=== PATIENT | female | born 1980 | race Caucasian/White ===

== ENCOUNTER 2016-07-29 12:12 | Emergency (ER) | payer MEDICAID ==
[2016-07-29 12:30] VITALS: BP 91/57
--- NOTE | 2016-07-29 12:31 | ER Document Report ---
ED Medical Screen (RME) - General Stated Complaint: PELVIC PAIN Notes: 35 yo c/o lower abdominal pain since last night. constant. . 17 weeks gestation. no vaginal bleeding. + dysuria. + nausea. no fever [facility] TRAVEL OUTSIDE OF THE [place] IN LAST 30 DAYS: No - Related Data Allergies/Adverse Reactions: No Known Allergies Allergy (Verified 06/06/16 16:13) Past Medical History Past Surgical History: Reports: Hx Section - Immunizations Hx Diphtheria, Pertussis, Tetanus Vaccination: Yes
[2016-07-29 14:06] LABS: ABSOLUTE EOSINOPHILS # (AUTO) 0.3 10^3/uL (0.0-0.6); BASOPHILS % (AUTO) 0.4 % (0-2); RED CELL DISTRIBUTION WIDTH 13.7 % (11.5-14.0)
[2016-07-29 14:12] LABS: APPEARANCE,URINE CLEAR; BILIRUBIN,URINE NEGATIVE (NEGATIVE); GLUCOSE, URINE NEGATIVE (NEGATIVE); KETONES,URINE NEGATIVE (NEGATIVE); LEUKOCYTE ESTERASE,URINE NEGATIVE (NEGATIVE); NITRITE,URINE NEGATIVE (NEGATIVE); PROTEIN,URINE NEGATIVE (NEGATIVE); URINE SPECIFIC GRAVITY 1.017; UROBILINOGEN,URINE NEGATIVE mg/dL (<2.0)
[2016-07-29 14:20] LABS: ABSOLUTE LYMPHOCYTES (AUTO) 1.8 10^3/uL (0.5-4.7); ABSOLUTE MONOCYTES (AUTO) 0.8 10^3/uL (0.1-1.4); ABSOLUTE NEUT (AUTO) 7.9 10^3/uL (1.7-8.2); HEMOGLOBIN 13.2 g/dL (12.0-15.5); HGB HCT DIFFERENCE 1.6; LYMPHOCYTES % (AUTO) 16.2 % (13-45); MEAN CORPUSCULAR HEMOGLOBIN 32.2 pg (27.0-33.4); MEAN CORPUSCULAR HGB CONC 34.6 g/dL (32.0-36.0); MEAN CORPUSCULAR VOLUME 93 fl (80-97); MONOCYTES % (AUTO) 7.2 % (3-13); RED BLOOD COUNT 4.08 10^6/uL (3.72-5.28); SEGMENTED NEUTROPHILS % (AUTO) 73.2 % (42-78); WHITE BLOOD COUNT 10.9 10^3/uL (4.0-10.5)
[2016-07-29 14:24] LABS: BLOOD UREA NITROGEN 7 mg/dL (7-20); CALCIUM 9.4 mg/dL (8.4-10.2); CREATININE RESULT 0.64 mg/dL (0.52-1.25); GLUCOSE 75 mg/dL (75-110)
[2016-07-29 14:25] LABS: ALANINE AMINOTRANSFERASE 26 U/L (9-52); ALBUMIN 3.8 g/dL (3.5-5.0); ALKALINE PHOSPHATASE 61 U/L (38-126); ANION GAP 9 (5-19); ASPARTATE AMINO TRANSFERASE 18 U/L (14-36); BILIRUBIN,TOTAL 0.6 mg/dL (0.2-1.3); CARBON DIOXIDE 27 mmol/L (22-30); CHLORIDE 105 mmol/L (98-107); POTASSIUM 4.3 mmol/L (3.6-5.0); SODIUM 140.7 mmol/L (137-145); TOTAL PROTEIN 6.6 g/dL (6.3-8.2)
--- NOTE | 2016-07-29 17:34 | ER Document Report ---
ED GI/ - General Chief Complaint: Pelvic Pain Stated Complaint: PELVIC PAIN TRAVEL OUTSIDE OF THE [place] IN LAST 30 DAYS: No - HPI heart tones (bpm): 140 - Related Data Allergies/Adverse Reactions: Penicillins Allergy (Verified 07/29/16 13:33) rash Home Medications: Current Home Medications Pnv with Ca,No.72/Iron/FA [Pnv Plus Multivit Tab] 1 tab PO DAILY [History] Past Medical History - Social History Smoking Status: Unknown if Ever Smoked Chew tobacco use (# tins/day): No Frequency of alcohol use: None Drug Abuse: None Family History: Reviewed & Not Pertinent Patient has suicidal ideation: No Patient has homicidal ideation: No Past Surgical History: Reports: Hx Section - Immunizations Hx Diphtheria, Pertussis, Tetanus Vaccination: Yes Physical Exam - Vital signs Vitals: Temp Pulse Resp BP Pulse Ox 97.6 F 81 18 91/57 L 100 07/29/16 12:27 07/29/16 12:27 07/29/16 12:27 07/29/16 12:27 07/29/16 12:27 Course - Vital Signs Vital signs: Temp Pulse Resp BP Pulse Ox 97.6 F 81 18 91/57 L 100 07/29/16 12:27 07/29/16 12:27 07/29/16 12:27 07/29/16 12:27 07/29/16 12:27 - Laboratory Result Diagrams: 07/29/16 13:10 07/29/16 13:10 Laboratory results interpreted by me: 07/29/16 07/29/16 13:10 13:10 WBC 10.9 H Beta HCG, Quant 83058.00 H Discharge - Discharge Clinical Impression: Pelvic pain during Condition: Stable Disposition: HOME, SELF-CARE Instructions: Pelvic Pain in ([facility]) Additional Instructions: Drink plenty of fluids, at least 2 to 3 liters of water per day. Follow-up with your [employer] Operator tomorrow as discussed. Return to the Emergency Department for any worsening symptoms or concerns. Referrals: [facility] [Provider Group] - Follow up tomorrow ELIF BUSTOS PA-C [Primary Care Provider] - Follow up in 3-5 days
== END 2016-07-29 17:50 | disposition home or self-care (01) ==
LOC: ER 12:12
DX: R10.2 Pelvic and perineal pain (principal)
CPT/HCPCS: 36415; 76805; 80053; 81001; 84702; 85025; 99284

== ENCOUNTER 2016-08-15 08:46 | Emergency (ER) | payer MEDICAID ==
[2016-08-15] MEDS ORDERED: ONDANSETRON HCL INJ/PF 4 MG/2 ML SDV IV ONE (09:51)
--- NOTE | 2016-08-15 09:56 | ER Document Report ---
ED General - General Chief Complaint: Pelvic Pain Stated Complaint: ADOMINAL PAIN Time seen by provider: 09:53 Mode of Arrival: Ambulatory Information source: Patient Notes: 85-year-old female who reports 3 episodes of nausea vomiting and bilateral lower abdominal pain beginning some point last night. Ports being 19 weeks and is followed by the women's clinic locally. She reports that with this in the past she's had episodes of vaginal leading and discharge has been found on ultrasound have less than normal amount of fluid and is been on bedrest. She denies any diarrhea, fever, chills, cough, shortness breath, chest pain, back pain, vaginal bleeding or discharge, dysuria urgency frequency with her current symptoms. Physical Exam: General: Alert, appears well. HEENT: Normocephalic. Atraumatic. PERRLA. Extraocular movements intact. Oropharynx clear. Neck: Supple. Non-tender. Respiratory: No respiratory distress. Clear and equal breath sounds bilaterally. Cardiovascular: Regular rate and rhythm. Abdominal: Normal Inspection. Soft, gravid uterus. Patient has suprapubic discomfort to palpation it seems localized to the uterus itself. Remainder of her abdomen is nontender and there is no guarding rebound rigidity. No distension. Normal Bowel Sounds. exam normal external female genitalia. Minimal thick white discharge. No adnexal tenderness bilaterally. Lower uterine segment mildly tender to palpation. Os is closed. No blood or tissue in the vaginal vault Back: Non-tender. No deformity or step off. No CVA tenderness Extremities: Moves all four extremities. Upper extremities: Normal inspection. Non-tender. Normal color. Normal ROM. Normal temperature. Lower extremities: Normal inspection. Non-tender. No edema. Normal color. Normal ROM. Normal temperature. Neurological: Speech is slow and patient has a mild expressive aphasia. No cranial nerve deficits appreciated. Psychological: Normal affect. Normal Mood. Skin: Warm. Dry. Normal color. TRAVEL OUTSIDE OF THE [place] 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 She reports residual speech difficulty related to that Renal/ Medical History: Denies: Hx Peritoneal Dialysis Traumatic Medical History: Reports: Hx Traumatic Brain Injury Past Surgical History: Reports: Hx Section - Immunizations Hx Diphtheria, Pertussis, Tetanus Vaccination: Yes Review of Systems - Review of Systems Constitutional: denies: Chills, Fever EENT: denies: Ear pain, Throat pain Cardiovascular: denies: Chest pain Respiratory: denies: Cough, Short of breath Gastrointestinal: See HPI Genitourinary: See HPI Female Genitourinary: See HPI Musculoskeletal: denies: Back pain Hematologic/Lymphatic: denies: Swollen glands Neurological/Psychological: denies: Weakness, Numbness Physical Exam - Vital signs Vitals: Temp Pulse Resp BP Pulse Ox 97.7 F 84 18 106/51 L 100 08/15/16 08:53 08/15/16 08:53 08/15/16 08:53 08/15/16 08:53 08/15/16 08:53 Course - Re-evaluation Re-evalutation: 08/15/16 12:22 Patient reports that her abdominal discomfort have been coming and going in waves but seems to have resolved now. She has received IV fluids and medication for nausea here. Reevaluation of abdomen shows her to be nontender nondistended no guarding rebound rigidity. I discussed the case with Dr. Claudio on-call for NUCLEAR PHYSICIST. Confirmed with her that the patient's wet prep and urinalysis were clear. She also expressed concern to ensure the patient cervical length was greater than 2.5 cm and ultrasound shows this to be 2.9 cm so believe she is safe for discharge with outpatient follow-up. We'll ask her to call office today for that and she reports having an appointment on the . She does have a minimal leukocytosis but I think is consistent with second trimester and the remainder of her abdomen has never been tender and my suspicion for other etiologies of her discomfort and nausea such as appendicitis or nephrolithiasis is low enough that I do not believe imaging is warranted. - Vital Signs Vital signs: Temp Pulse Resp BP Pulse Ox 97.7 F 84 18 106/51 L 100 08/15/16 08:53 08/15/16 08:53 08/15/16 10:16 08/15/16 08:53 08/15/16 08:53 - Laboratory Result Diagrams: 08/15/16 10:40 08/15/16 10:40 Laboratory results interpreted by me: 08/15/16 08/15/16 10:40 10:40 WBC 12.0 H Seg Neutrophils % 81.7 H Lymphocytes % 10.7 L Absolute Neutrophils 9.8 H Glucose 62 L - Diagnostic Test Radiology reviewed: Reports reviewed Discharge - Discharge Clinical Impression: Abdominal pain affecting , antepartum Condition: Stable Disposition: HOME, SELF-CARE Instructions: Pelvic Pain in ([facility]) Referrals: ELIF BUSTOS PA-C [Primary Care Provider] - Follow up as needed NORMA WOODS MD [ACTIVE STAFF] - Follow up tomorrow
[2016-08-15 10:57] LABS: ABSOLUTE EOSINOPHILS # (AUTO) 0.1 10^3/uL (0.0-0.6); ABSOLUTE LYMPHOCYTES (AUTO) 1.3 10^3/uL (0.5-4.7); ABSOLUTE MONOCYTES (AUTO) 0.8 10^3/uL (0.1-1.4); ABSOLUTE NEUT (AUTO) 9.8 10^3/uL (1.7-8.2); BASOPHILS % (AUTO) 0.3 % (0-2); HEMATOCRIT 38.1 % (36.0-47.0); HEMOGLOBIN 12.7 g/dL (12.0-15.5); LYMPHOCYTES % (AUTO) 10.7 % (13-45); MEAN CORPUSCULAR HEMOGLOBIN 31.9 pg (27.0-33.4); MEAN CORPUSCULAR HGB CONC 33.5 g/dL (32.0-36.0); MEAN CORPUSCULAR VOLUME 95 fl (80-97); MONOCYTES % (AUTO) 6.3 % (3-13); RED CELL DISTRIBUTION WIDTH 13.6 % (11.5-14.0); SEGMENTED NEUTROPHILS % (AUTO) 81.7 % (42-78)
[2016-08-15 11:01] LABS: APPEARANCE,URINE SLIGHTLY-CLOUDY; BILIRUBIN,URINE NEGATIVE (NEGATIVE); GLUCOSE, URINE NEGATIVE (NEGATIVE); KETONES,URINE NEGATIVE (NEGATIVE); LEUKOCYTE ESTERASE,URINE NEGATIVE (NEGATIVE); NITRITE,URINE NEGATIVE (NEGATIVE); PROTEIN,URINE NEGATIVE (NEGATIVE); URINE SPECIFIC GRAVITY 1.017; UROBILINOGEN,URINE NEGATIVE mg/dL (<2.0)
[2016-08-15 11:18] LABS: ALANINE AMINOTRANSFERASE 26 U/L (9-52); ALBUMIN 3.6 g/dL (3.5-5.0); ALKALINE PHOSPHATASE 56 U/L (38-126); ANION GAP 8 (5-19); ASPARTATE AMINO TRANSFERASE 17 U/L (14-36); BILIRUBIN,TOTAL 0.8 mg/dL (0.2-1.3); BLOOD UREA NITROGEN 10 mg/dL (7-20); CALCIUM 9.4 mg/dL (8.4-10.2); CARBON DIOXIDE 27 mmol/L (22-30); CHLORIDE 105 mmol/L (98-107); CREATININE RESULT 0.72 mg/dL (0.52-1.25); GLUCOSE 62 mg/dL (75-110); POTASSIUM 4.2 mmol/L (3.6-5.0); SODIUM 139.6 mmol/L (137-145); TOTAL PROTEIN 6.5 g/dL (6.3-8.2)
[2016-08-15] MEDS: NORMAL SALINE 1000 ML 1,000 ML IV PRN ×2 (11:31→12:10)
[2016-08-15 12:37] VITALS: BP 105/50
[2016-08-15 13:03] LABS: CHLAM PCR NOT DETECTED (NOT DETECT)
== END 2016-08-15 12:39 | disposition home or self-care (01) ==
LOC: ER 08:46
DX: O26.892 Other specified pregnancy related conditions, second trimester (principal); R10.2 Pelvic and perineal pain; O21.9 Vomiting of pregnancy, unspecified; O99.112 Other diseases of the blood and blood-forming organs and certain disorders involving the immune mechanism complicating pregnancy, second trimester; D72.829 Elevated white blood cell count, unspecified; Z3A.19 19 weeks gestation of pregnancy
CPT/HCPCS: 99284; 96361; 96374; 36415; 87086; 87210; 83690; 85025; 80053; 81001; 87491; 87591; 76805; J2405; J7030

== ENCOUNTER 2016-10-19 09:58 | Emergency (ER) | payer MEDICAID ==
--- NOTE | 2016-10-19 10:18 | ER Document Report ---
ED Medical Screen (RME) - General Stated Complaint: ABDOMINAL PAIN Notes: Patient states she woke up this morning sweating, had an episode of vomiting and diarrhea and loss of consciousness. She is having tightness and pain in the abdomen. Patient is currently 29 weeks . Patient denies fever. Patient felt disoriented, has a history of TBI. Patient states she failed her sugar test at OBs office 2 days ago. No vaginal bleeding. I have greeted and performed a rapid initial assessment of this patient. A comprehensive ED assessment and evaluation of the patient, analysis of test results and completion of the medical decision making process will be conducted by additional ED providers. TRAVEL OUTSIDE OF THE [place] IN LAST 30 DAYS: No - Related Data Allergies/Adverse Reactions: Penicillins Allergy (Verified 08/15/16 08:50) rash silk Allergy (Verified 10/19/16 10:13) Difficulty breathing Past Medical History Renal/ Medical History: Denies: Hx Peritoneal Dialysis Traumatic Medical History: Reports: Hx Traumatic Brain Injury Past Surgical History: Reports: Hx Section - Immunizations Hx Diphtheria, Pertussis, Tetanus Vaccination: Yes Physical Exam - Vital signs Vitals: Temp Pulse Resp BP Pulse Ox 97.4 F 91 15 106/63 97 10/19/16 10:12 10/19/16 10:12 10/19/16 10:12 10/19/16 10:12 10/19/16 10:12 - Notes Notes: Patient's speech delayed, states it is always this way due to TBI. Patient's gait slightly off, usually walks with a walker, but does not have it with her today. Course - Vital Signs Vital signs: Temp Pulse Resp BP Pulse Ox 97.4 F 91 15 106/63 97 10/19/16 10:12 10/19/16 10:12 10/19/16 10:12 10/19/16 10:12 10/19/16 10:12
[2016-10-19 11:05] LABS: ABSOLUTE LYMPHOCYTES (AUTO) 1.9 10^3/uL (0.5-4.7); ABSOLUTE MONOCYTES (AUTO) 0.8 10^3/uL (0.1-1.4); ABSOLUTE NEUT (AUTO) 9.8 10^3/uL (1.7-8.2); BASOPHILS % (AUTO) 0.2 % (0-2); EOSINOPHILS % (AUTO) 0.4 % (0-6); HEMATOCRIT 39.4 % (36.0-47.0); HEMOGLOBIN 13.6 g/dL (12.0-15.5); HGB HCT DIFFERENCE 1.4; LYMPHOCYTES % (AUTO) 14.9 % (13-45); MEAN CORPUSCULAR HEMOGLOBIN 32.1 pg (27.0-33.4); MEAN CORPUSCULAR HGB CONC 34.6 g/dL (32.0-36.0); MEAN CORPUSCULAR VOLUME 93 fl (80-97); MONOCYTES % (AUTO) 6.3 % (3-13); RED BLOOD COUNT 4.24 10^6/uL (3.72-5.28); RED CELL DISTRIBUTION WIDTH 13.5 % (11.5-14.0); SEGMENTED NEUTROPHILS % (AUTO) 78.2 % (42-78); WHITE BLOOD COUNT 12.5 10^3/uL (4.0-10.5)
[2016-10-19 11:18] LABS: APPEARANCE,URINE CLEAR; BILIRUBIN,URINE NEGATIVE (NEGATIVE); GLUCOSE, URINE NEGATIVE (NEGATIVE); KETONES,URINE NEGATIVE (NEGATIVE); LEUKOCYTE ESTERASE,URINE NEGATIVE (NEGATIVE); NITRITE,URINE NEGATIVE (NEGATIVE); PROTEIN,URINE NEGATIVE (NEGATIVE); UROBILINOGEN,URINE NEGATIVE mg/dL (<2.0)
[2016-10-19 11:25] LABS: ALANINE AMINOTRANSFERASE 23 U/L (9-52); ALBUMIN 3.8 g/dL (3.5-5.0); ALKALINE PHOSPHATASE 80 U/L (38-126); ANION GAP 10 (5-19); ASPARTATE AMINO TRANSFERASE 21 U/L (14-36); BILIRUBIN,DIRECT 0.1 mg/dL (0.0-0.4); BLOOD UREA NITROGEN 8 mg/dL (7-20); CALCIUM 9.6 mg/dL (8.4-10.2); CARBON DIOXIDE 26 mmol/L (22-30); CHLORIDE 104 mmol/L (98-107); GLUCOSE 80 mg/dL (75-110); POTASSIUM 4.1 mmol/L (3.6-5.0); SODIUM 139.9 mmol/L (137-145); TOTAL PROTEIN 6.8 g/dL (6.3-8.2)
[2016-10-19] MEDS ORDERED: NORMAL SALINE 1000 ML 1,000 ML IV ONE (11:35)
[2016-10-19] MEDS ORDERED: DIPHENHYDRAMINE HCL 50 MG/ML VIAL IV ONE (11:37)
[2016-10-19] MEDS ORDERED: METOCLOPRAMIDE HCL INJ/PF 10 MG/2 ML SDV IV ONE (11:37)
--- NOTE | 2016-10-19 11:43 | ER Document Report ---
ED General - General Mode of Arrival: Ambulatory Information source: Patient TRAVEL OUTSIDE OF THE [place] IN LAST 30 DAYS: No - HPI Patient complains to provider of: Syncopal Episode Onset: This morning Onset/Duration: Sudden Associated symptoms: Diarrhea - x1, Nausea, Vomiting, Shortness of breath, Sweating, Other - Syncope <DINAH SOSA - Last Filed: 10/19/16 11:35> <MACI VILLAGRAN - Last Filed: 10/19/16 14:21> - General Chief Complaint: Syncope Stated Complaint: ABDOMINAL PAIN Notes: Patient is a 35-year-old female, who is 29 weeks , presenting to the emergency department chief complaint one syncopal episode which occurred this morning. Patient also states that she woke up drenched in sweat, heart pounding , and has been short of breath, vomiting, (latest episode at 0900), and having diarrhea. Patient states that she normally has nausea and vomiting with her , but it doesn't normally happen at this time of day. Patient has history of traumatic brain injury and walks with a walker. Patient also mentions that somebody told her she failed her glucose tolerance test. (DINAH SOSA) - Related Data Allergies/Adverse Reactions: Penicillins Allergy (Verified 08/15/16 08:50) rash silk Allergy (Verified 10/19/16 10:13) Difficulty breathing Past Medical History - General Information source: Patient - Social History Smoking Status: Never Smoker Chew tobacco use (# tins/day): No Frequency of alcohol use: None Drug Abuse: None Family History: Reviewed & Not Pertinent, DM - Brother Patient has suicidal ideation: No Patient has homicidal ideation: No Renal/ Medical History: Denies: Hx Peritoneal Dialysis Traumatic Medical History: Reports: Hx Traumatic Brain Injury Past Surgical History: Reports: Hx Section - Immunizations Hx Diphtheria, Pertussis, Tetanus Vaccination: Yes <DINAH SOSA - Last Filed: 10/19/16 11:35> Review of Systems - Review of Systems Constitutional: See HPI, Diaphoresis EENT: No symptoms reported Cardiovascular: See HPI, Heart racing, Syncope Respiratory: See HPI, Short of breath Gastrointestinal: See HPI, Abdominal pain - Right lower quadrant and left lower quadrant abdominal pain, Diarrhea - x1, Nausea, Vomiting Genitourinary: No symptoms reported Female Genitourinary: See HPI, Musculoskeletal: No symptoms reported Skin: No symptoms reported Hematologic/Lymphatic: No symptoms reported Neurological/Psychological: See HPI, Confusion -: Yes All other systems reviewed and negative <DINAH SOSA - Last Filed: 10/19/16 11:35> Physical Exam - Vital signs Interpretation: Normal - General General appearance: Appears well, Alert - HEENT Head: Normocephalic, Atraumatic Eyes: Normal Pupils: PERRL - Respiratory Respiratory status: No respiratory distress Chest status: Nontender Breath sounds: Normal Chest palpation: Normal - Cardiovascular Rhythm: Regular Heart sounds: Normal auscultation Murmur: No - Abdominal Inspection: Gravid female - 29 weeks Bowel sounds: Normal Tenderness: Tender - Right lower quadrant and left lower quadrant tenderness to palpation - Back Back: Normal, Nontender - Extremities General upper extremity: Normal inspection, Nontender General lower extremity: Normal inspection, Nontender - Neurological Neuro grossly intact: Yes Cognition: Normal Orientation: AAOx4 Khloe Coma Scale Eye Opening: Spontaneous [place]hloe Coma Scale Verbal: Oriented Khloe Coma Scale Motor: Obeys Commands [place] Coma Scale Total: 15 Speech: Normal - Psychological Associated symptoms: Normal affect, Normal mood - Skin Skin Temperature: Warm Skin Moisture: Dry Skin Color: Normal <DINAH SOSA - Last Filed: 10/19/16 11:35> Course - Laboratory Result Diagrams: 10/19/16 10:40 10/19/16 10:40 <DINAH SOSA - Last Filed: 10/19/16 11:35> - Laboratory Result Diagrams: 10/19/16 10:40 10/19/16 10:40 - EKG Interpretation by Ny EKG shows normal: Sinus rhythm, [place], Intervals, QRS Complexes, ST-T Waves Rate: Normal - 74 Rhythm: NSR <MACI VILLAGRAN - Last Filed: 10/19/16 14:21> - Re-evaluation Re-evalutation: 10/19/16 14:19 Patient reports she feels considerably better after the IV Reglan and fluids. The nausea is gone and the headache is gone. She is not sure if she has had that for the nausea of her for headache in the past. (MACI VILLAGRAN) - Vital Signs Vital signs: Temp Pulse Resp BP Pulse Ox 97.4 F 91 15 106/63 97 10/19/16 10:12 10/19/16 10:12 10/19/16 10:12 10/19/16 10:12 10/19/16 10:12 - Laboratory Laboratory results interpreted by me: 10/19/16 10:40 WBC 12.5 H Seg Neutrophils % 78.2 H Absolute Neutrophils 9.8 H Discharge <DINAH SOSA - Last Filed: 10/19/16 11:35> <MACI VILLAGRAN - Last Filed: 10/19/16 14:21> - Discharge Clinical Impression: 29 weeks gestation of Nausea and vomiting Qualifiers: Vomiting type: unspecified Vomiting Intractability: non-intractable Qualified Code(s): R11.2 - Nausea with vomiting, unspecified Headache Qualifiers: Headache type: unspecified Headache chronicity pattern: unspecified pattern Intractability: not intractable Qualified Code(s): R51 - Headache Condition: Stable Disposition: HOME, SELF-CARE Additional Instructions: Take the Reglan for nausea as prescribed if needed. Drink cool clear liquids today. Follow-up with your TRAFFIC CHECKER doctor if not feeling better. RETURN TO THE EMERGENCY ROOM IF ANY NEW OR WORSENING SYMPTOMS. Prescriptions: Metoclopramide HCl 10 mg PO QID PRN #20 tablet PRN Reason: Scribe Attestation: 10/19/16 14:21 I personally performed the services described in the documentation, reviewed and edited the documentation which was dictated to the scribe in my presence, and it accurately records my words and actions. (MACI VILLAGRAN) Scribe Documentation - Scribe Written by Scribe:: Dinah Sosa 10/19/2016 1136 acting as scribe for :: Fabian <DINAH SOSA - Last Filed: 10/19/16 11:35>
[2016-10-19 14:41] VITALS: BP 98/55
--- NOTE | 2016-10-19 22:02 | EKG REPORT ---
SEVERITY:- NORMAL ECG - SINUS RHYTHM : Confirmed by: Tyrone Minaya 19-Oct-2016 22:01:12
== END 2016-10-19 14:38 | disposition home or self-care (01) ==
LOC: ER 09:58
DX: R11.2 Nausea with vomiting, unspecified (principal); R51 Headache; R55 Syncope and collapse; R10.9 Unspecified abdominal pain; Z3A.29 29 weeks gestation of pregnancy
CPT/HCPCS: 93005; 99284; 96361; 96374; 96375; 36415; 82550; 85025; 80053; 81001; 84484; 93010; J1200; J2765; J7030

== ENCOUNTER 2016-11-05 11:28 | Emergency (ER) | payer MEDICAID ==
[2016-11-05 11:41] VITALS: BP 113/72
[2016-11-05] MEDS ORDERED: ACETAMINOPHEN 325 MG TABLET PO ONE (12:32)
--- NOTE | 2016-11-05 12:35 | ER Document Report ---
HPI - HPI Patient complains to provider of: knee pain Onset: Other - 2 days Onset/Duration: Persistent Quality of pain: Achy Pain Level: 4 Context: Patient reports a history of chronic left knee and ankle pain. Patient states that pain will occasionally flareup from time to time. Patient states she was in the bathtub 2 days ago, slipped and fell aggravating her chronic left ankle and knee pain. Patient states that due to limping her right knee and hip have started to become tender. Patient states she's had her right knee and hip become painful in the past due to changes in her gait. Patient does have a walker at home, but states it is a heavy walker that has a seat on it so she does not like to use this at home. Patient additionally reports that she has a knee immobilizer at home, but she has lost weight and the brace no longer fits her. He shouldn't states that she does not suspect that she has a fractured bone and would simply like to have a brace for her knee that fits her more appropriately. Patient is currently 31 weeks . Patient denies any abdominal pain, vaginal bleeding or discharge. Associated Symptoms: Other Exacerbated by: Standing, Movement - Left knee, ankle pain, right knee, right hip pain, Walking Relieved by: Denies Similar symptoms previously: Yes Recently seen / treated by doctor: No - ROS ROS below otherwise negative: Yes Systems Reviewed and Negative: Yes All other systems reviewed and negative - CONSTITUTIONAL Constitutional: DENIES: Fever, Chills - NEURO Neurology: DENIES: Headache - RESPIRATORY Respiratory: DENIES: Coughing - GASTROINTESTINAL Gastrointestinal: DENIES: Nausea, Patient vomiting - REPRODUCTIVE Reproductive: REPORTS: : - MUSCULOSKELETAL Musculoskeletal: REPORTS: Extremity pain. DENIES: Back Pain, Neck Pain - DERM Skin Color: Normal Skin Problems: None Past Medical History - General Information source: Patient Last Menstrual Period: 31 weeks - Social History Smoking Status: Never Smoker Frequency of alcohol use: None Drug Abuse: None Lives with: Family Family History: Reviewed & Not Pertinent, DM - Brother Patient has suicidal ideation: No Patient has homicidal ideation: No Renal/ Medical History: Denies: Hx Peritoneal Dialysis Musculoskeltal Medical History: Reports Hx Arthritis - Left knee and ankle pain Traumatic Medical History: Reports: Hx Traumatic Brain Injury, Other - Speech and motor functioning problems after TBI, patient reports history of frequent falls Past Surgical History: Reports: Hx Section - Immunizations Hx Diphtheria, Pertussis, Tetanus Vaccination: Yes Vertical Provider Document - CONSTITUTIONAL Agree With Documented VS: Yes Exam Limitations: No Limitations General Appearance: WD/WN, No Apparent Distress - INFECTION CONTROL TRAVEL OUTSIDE OF THE [place] IN LAST 30 DAYS: No - HEENT HEENT: Atraumatic, Normal ENT Exam, Normocephalic - NECK Neck: Normal Inspection, Supple - RESPIRATORY Respiratory: Breath Sounds Normal, No Respiratory Distress O2 Sat by Pulse Oximetry: 97 - CARDIOVASCULAR Cardiovascular: Regular Rate, Regular Rhythm, No Murmur Pulses: Normal: Dorsalis pedis - GI/ABDOMEN Gastrointestinal: Abdomen Soft, Abdomen Non-Tender - BACK Back: Normal Inspection. negative: CVA Tenderness-Right, CVA Tenderness-Left Notes: No spinal midline tenderness, step-off, deformity - MUSCULOSKELETAL/EXTREMETIES Musculoskeletal/Extremeties: MAEW, FROM, Tender - Tenderness with palpation to medial aspect of right knee, no joint effusion, no laxity with varus or valgus maneuvers. Tenderness to medial and inferior aspect of left knee. Patient with mild ecchymosis to medial left knee. No joint effusion, no laxity with varus or valgus maneuvers., Eccymosis - Faint ecchymotic area dorsal aspect of right foot. Notes: Tenderness with palpation of left ankle, no edema, no deformity. - NEURO Level of Consciousness: Awake, Alert, Appropriate Motor/Sensory: No Motor Deficit - DERM Integumentary: Warm, Dry Course - Re-evaluation Re-evalutation: 11/05/16 12:31 Offered patient x-rays, patient states that she does not feel that she has any broken bones and declines x-ray at this time. Patient does request to have an immobilizer for her left knee that does fit as her current immobilizer does not fit due to her 50 pound weight loss over the past several months. Patient states she does have a walker at home. Patient reports that she has concerns about using crutches due to her mobility issues after her previous traumatic brain injury. Patient states that she does frequently fall at home a lot. Patient encouraged to use her walker at home to help with ambulation to prevent falls. - Vital Signs Vital signs: Temp Pulse Resp BP Pulse Ox 98.4 F 91 16 113/72 97 11/05/16 11:39 11/05/16 11:39 11/05/16 11:39 11/05/16 11:39 11/05/16 11:39 Procedures - Immobilization Left Knee Pre-Proc Neuro Vasc Exam: Normal Immobilizer type: Knee immobilizer Performed by: PCT Post-Proc Neuro Vasc Exam: Normal Alignment checked and good: Yes Left Ankle Pre-Proc Neuro Vasc Exam: Normal Immobilizer type: David wrap Performed by: PCT Post-Proc Neuro Vasc Exam: Normal Alignment checked and good: Yes Right Knee Pre-Proc Neuro Vasc Exam: Normal Immobilizer type: David wrap Performed by: PCT Post-Proc Neuro Vasc Exam: Normal Alignment checked and good: Yes Discharge - Discharge Clinical Impression: Chronic pain of left ankle Knee sprain Qualifiers: Encounter type: initial encounter Involved ligament of knee: unspecified ligament Laterality: unspecified laterality Qualified Code(s): S83.90XA - Sprain of unspecified site of unspecified knee, initial encounter Contusion of knee, left Qualifiers: Encounter type: initial encounter Qualified Code(s): S80.02XA - Contusion of left knee, initial encounter Condition: Stable Disposition: HOME, SELF-CARE Instructions: David Wrap ([facility]), Knee Immobilizing Splint ([facility]), Sprained Knee ( [facility]), Contusion ([facility]), Acetaminophen Additional Instructions: Return immediately for any new or worsening symptoms Followup with your primary care provider, call tomorrow to make a followup appointment Use your walker that you have at home to help with ambulation and prevent falls You may take Tylenol [id number] to help with her pain symptoms. Follow up with an orthopedic Dr. for further evaluation, call today for an appointment Prescriptions: Walker [Folding Walker] 1 each ASDIR PRN #1 each PRN Reason: Referrals: [facility] [Provider Group] - Follow up tomorrow
== END 2016-11-05 13:33 | disposition home or self-care (01) ==
LOC: ER 11:28
DX: O26.93 Pregnancy related conditions, unspecified, third trimester (principal); S83.90XA Sprain of unspecified site of unspecified knee, initial encounter; S80.02XA Contusion of left knee, initial encounter; M25.572 Pain in left ankle and joints of left foot; G89.29 Other chronic pain; W18.2XXA Fall in (into) shower or empty bathtub, initial encounter; Y93.E1 Activity, personal bathing and showering; Y92.002 Bathroom of unspecified non-institutional (private) residence as the place of occurrence of the external cause; Z3A.31 31 weeks gestation of pregnancy
CPT/HCPCS: 99283; L1830; J3490

== ENCOUNTER 2016-12-03 12:04 | Outpatient (CLI) | payer MEDICAID ==
--- NOTE | 2016-12-03 13:15 | Non Stress Test Report ---
Non Stress Test Datetime Report Generated by CPN: 12/03/2016 13:15 DEMOGRAPHIC EGA NST: 35.3 INDICATION Indication for Study: Ordered by Provider MONITORING Monitor Explained: Monitor Explained; Test Explained; Patient Verbalized Understanding Time on Monitor: 12/03/2016 12:26 Time off Monitor: 12/03/2016 13:09 NST Duration: 43 NST INTERVENTIONS NST Interventions: PO Hydration; IV Fluids; Reposition Patient Physician Notified NST: A. Emmel, CNM BABY A: [id number] BABY A Movement : Present Contraction Frequency : 0 FHR Baseline : 135 FHR Baseline : 130 Accelerations : 15X15 Decelerations : None Variability : Moderate 6-25bpm NST Review: Meets Criteria for Reactive NST NST Review and Verified By : JOSIANE Damon Results: Reactive NST REPORT Report Trigger: Send Report
[2016-12-03] MEDS ORDERED: RINGERS SOLUTION,LACTATED 1,000 ML IV PRN (14:28)
== END 2016-12-03 15:16 | disposition home or self-care (01) ==
LOC: LC 12:04
PROVIDERS: ATTEND Obstetrics & Gynecology
PROC: 4A1HXCZ Monitoring of Products of Conception, Cardiac Rate, External Approach (ICD-10-PCS; principal; 2016-12-03)
DX: O99.283 Endocrine, nutritional and metabolic diseases complicating pregnancy, third trimester (principal); E86.0 Dehydration; O09.523 Supervision of elderly multigravida, third trimester; Z3A.35 35 weeks gestation of pregnancy

== ENCOUNTER 2016-12-04 16:53 | Emergency (ER) | payer MEDICAID ==
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
[2016-12-04] MEDS ORDERED: NORMAL SALINE 1000 ML 1,000 ML IV PRN ×2 (18:24→19:41)
[2016-12-04] MEDS ORDERED: METOCLOPRAMIDE HCL INJ/PF 10 MG/2 ML SDV IV ONE (18:24)
[2016-12-04] MEDS ORDERED: DIPHENHYDRAMINE HCL 50 MG/ML VIAL IV ONE (18:24)
--- NOTE | 2016-12-04 18:27 | ER Document Report ---
ED Headache - General Chief Complaint: Headache >24 hrs old Stated Complaint: HEADACHE/DIZZINESS Time Seen by Provider: 12/04/16 17:35 Mode of Arrival: Ambulatory Information source: Patient TRAVEL OUTSIDE OF THE [place] IN LAST 30 DAYS: No - HPI Patient complains to provider of: Headache Patient reports: Hx chronic headaches, Prior TBI Onset: Other - 3 days Onset was: Gradual, Thunderclap Quality of pain: Achy, Fullness, Pressure Severity: Moderate Pain Level: 4 Associated symptoms: Dizzy, Nausea/vomiting Similar symptoms previously: Yes Recently seen / treated by doctor: Yes Notes: Patient is a 36-year-old female who is approximately 35 weeks , with one previous miscarriage, history of preeclampsia during her first , presenting to the emergency room complaining of headache mainly on the right side of the head that's been present for the past 3 days, she is a history of a TBI in February 2016, and had similar headaches following her head injury, but has not had any recently, she also has a history of a DVT and is currently on Lovenox injections, Diclygis and Singulair, she is followed by [facility], she reports nausea associated with her headache but no vomiting or diarrhea, no fever, no recent head injury, no dysuria, no fever or chills, denies any abdominal pain or vaginal bleeding as well - Related Data Allergies/Adverse Reactions: Penicillins Allergy (Verified 12/04/16 17:29) rash silk Allergy (Verified 12/04/16 17:29) Difficulty breathing Past Medical History - General Information source: Patient - Social History Smoking Status: Unknown if Ever Smoked Family History: Reviewed & Not Pertinent, DM - Brother Patient has suicidal ideation: No Patient has homicidal ideation: No Endocrine Medical History: Reports: Hx Diabetes Mellitus Type 2 - gestational Renal/ Medical History: Denies: Hx Peritoneal Dialysis Musculoskeltal Medical History: Reports Hx Arthritis - Left knee and ankle pain Traumatic Medical History: Reports: Hx Traumatic Brain Injury Past Surgical History: Reports: Hx Section, Hx Tonsillectomy - Immunizations Hx Diphtheria, Pertussis, Tetanus Vaccination: Yes Review of Systems - Review of Systems Constitutional: No symptoms reported EENT: Eye pain Cardiovascular: No symptoms reported Respiratory: No symptoms reported Gastrointestinal: Nausea Genitourinary: No symptoms reported Female Genitourinary: No symptoms reported Musculoskeletal: No symptoms reported Skin: No symptoms reported Hematologic/Lymphatic: No symptoms reported Neurological/Psychological: Headaches -: Yes All other systems reviewed and negative Physical Exam - Vital signs Vitals: Temp Pulse Resp BP Pulse Ox 97.8 F 88 14 122/83 97 12/04/16 17:14 12/04/16 17:14 12/04/16 17:14 12/04/16 17:14 12/04/16 17:14 Interpretation: Normal - General General appearance: Appears well, Alert - HEENT Head: Normocephalic, Atraumatic Eyes: Normal Conjunctiva: Normal Extraocular movements intact: Yes Eyelashes: Normal Pupils: PERRL - Respiratory Respiratory status: No respiratory distress Chest status: Nontender Breath sounds: Normal Chest palpation: Normal - Cardiovascular Rhythm: Regular Heart sounds: Normal auscultation Murmur: No - Abdominal Inspection: Normal, Gravid female Distension: No distension Bowel sounds: Normal Tenderness: Nontender Organomegaly: No organomegaly - Back Back: Normal, Nontender - Extremities General upper extremity: Normal inspection, Nontender, Normal color, Normal ROM , Normal temperature General lower extremity: Normal inspection, Nontender, Normal color, Normal ROM , Normal temperature, Normal weight bearing. No: Mago's sign - Neurological Neuro grossly intact: Yes Cognition: Normal Orientation: AAOx4 [place] Coma Scale Eye Opening: Spontaneous Khloe Coma Scale Verbal: Oriented Khloe Coma Scale Motor: Obeys Commands [place] Coma Scale Total: 15 Speech: Normal Motor strength normal: LUE, RUE, LLE, RLE Sensory: Normal - Psychological Associated symptoms: Normal affect, Normal mood - Skin Skin Temperature: Warm Skin Moisture: Dry Skin Color: Normal Course - Vital Signs Vital signs: Temp Pulse Resp BP Pulse Ox 97.8 F 88 14 122/83 97 12/04/16 17:14 12/04/16 17:14 12/04/16 17:14 12/04/16 17:14 12/04/16 17:14
[2016-12-04 18:49] LABS: ABSOLUTE EOSINOPHILS # (AUTO) 0.1 10^3/uL (0.0-0.6); ABSOLUTE LYMPHOCYTES (AUTO) 1.8 10^3/uL (0.5-4.7); ABSOLUTE MONOCYTES (AUTO) 0.9 10^3/uL (0.1-1.4); ABSOLUTE NEUT (AUTO) 8.1 10^3/uL (1.7-8.2); BASOPHILS % (AUTO) 0.3 % (0-2); EOSINOPHILS % (AUTO) 0.8 % (0-6); HEMOGLOBIN 13.6 g/dL (12.0-15.5); HGB HCT DIFFERENCE -0.2; LYMPHOCYTES % (AUTO) 16.7 % (13-45); MEAN CORPUSCULAR HEMOGLOBIN 31.4 pg (27.0-33.4); MEAN CORPUSCULAR HGB CONC 33.3 g/dL (32.0-36.0); MEAN CORPUSCULAR VOLUME 95 fl (80-97); MONOCYTES % (AUTO) 8.3 % (3-13); RED BLOOD COUNT 4.34 10^6/uL (3.72-5.28); RED CELL DISTRIBUTION WIDTH 14.6 % (11.5-14.0); SEGMENTED NEUTROPHILS % (AUTO) 73.9 % (42-78)
[2016-12-04 20:54] LABS: ALANINE AMINOTRANSFERASE 30 U/L (9-52); ALBUMIN 3.3 g/dL (3.5-5.0); ALKALINE PHOSPHATASE 111 U/L (38-126); ANION GAP 10 (5-19); ASPARTATE AMINO TRANSFERASE 28 U/L (14-36); BILIRUBIN,DIRECT 0.2 mg/dL (0.0-0.4); BILIRUBIN,TOTAL 0.9 mg/dL (0.2-1.3); BLOOD UREA NITROGEN 8 mg/dL (7-20); CALCIUM 8.5 mg/dL (8.4-10.2); CARBON DIOXIDE 22 mmol/L (22-30); CHLORIDE 108 mmol/L (98-107); CREATININE RESULT 0.66 mg/dL (0.52-1.25); GLUCOSE 66 mg/dL (75-110); LDH 409 U/L (313-618); POTASSIUM 4.1 mmol/L (3.6-5.0); SODIUM 140.2 mmol/L (137-145); TOTAL PROTEIN 6.5 g/dL (6.3-8.2); URIC ACID 4.6 mg/dL (2.5-7.0)
[2016-12-04 21:01] LABS: APPEARANCE,URINE CLEAR; BILIRUBIN,URINE NEGATIVE (NEGATIVE); GLUCOSE, URINE NEGATIVE (NEGATIVE); KETONES,URINE NEGATIVE (NEGATIVE); LEUKOCYTE ESTERASE,URINE NEGATIVE (NEGATIVE); NITRITE,URINE NEGATIVE (NEGATIVE); PROTEIN,URINE NEGATIVE (NEGATIVE); URINE SPECIFIC GRAVITY 1.011; UROBILINOGEN,URINE NEGATIVE mg/dL (<2.0)
[2016-12-04 22:14] VITALS: BP 111/77
== END 2016-12-04 22:10 | disposition home or self-care (01) ==
LOC: ER 16:53
DX: R51 Headache (principal); R42 Dizziness and giddiness; R11.2 Nausea with vomiting, unspecified
CPT/HCPCS: 99284; 96361; 96374; 96375; 36415; 87086; 82962; 83615; 84550; 85025; 80053; 81001; J1200; J2765; J7030

== ENCOUNTER 2016-12-06 11:00 | Observation (INO) | payer MEDICAID ==
[2016-12-06 12:26] LABS: APPEARANCE,URINE SLIGHTLY-CLOUDY; BILIRUBIN,URINE NEGATIVE (NEGATIVE); GLUCOSE, URINE NEGATIVE (NEGATIVE); KETONES,URINE 20 mg/dL (NEGATIVE); LEUKOCYTE ESTERASE,URINE NEGATIVE (NEGATIVE); NITRITE,URINE NEGATIVE (NEGATIVE); PROTEIN,URINE NEGATIVE (NEGATIVE); URINE SPECIFIC GRAVITY 1.013; UROBILINOGEN,URINE NEGATIVE mg/dL (<2.0)
[2016-12-06] MEDS ORDERED: ACETAMINOPHEN 325 MG TABLET ONE (12:33)
[2016-12-06] MEDS ORDERED: ONDANSETRON HCL INJ/PF 4 MG/2 ML SDV ONE (12:34)
[2016-12-06 12:35] LABS: ABSOLUTE LYMPHOCYTES (AUTO) 1.5 10^3/uL (0.5-4.7); ABSOLUTE MONOCYTES (AUTO) 0.9 10^3/uL (0.1-1.4); ABSOLUTE NEUT (AUTO) 9.1 10^3/uL (1.7-8.2); BASOPHILS % (AUTO) 0.3 % (0-2); EOSINOPHILS % (AUTO) 0.3 % (0-6); HEMATOCRIT 37.8 % (36.0-47.0); HEMOGLOBIN 12.8 g/dL (12.0-15.5); HGB HCT DIFFERENCE 0.6; LYMPHOCYTES % (AUTO) 13.2 % (13-45); MEAN CORPUSCULAR HEMOGLOBIN 31.1 pg (27.0-33.4); MEAN CORPUSCULAR VOLUME 92 fl (80-97); MONOCYTES % (AUTO) 8.1 % (3-13); RED BLOOD COUNT 4.12 10^6/uL (3.72-5.28); RED CELL DISTRIBUTION WIDTH 14.5 % (11.5-14.0); SEGMENTED NEUTROPHILS % (AUTO) 78.1 % (42-78); WHITE BLOOD COUNT 11.6 10^3/uL (4.0-10.5)
[2016-12-06 12:53] LABS: URINE BARBITURATES SCREEN NEGATIVE; URINE METHADONE SCREEN NEGATIVE; URINE OPIATES LOW NEGATIVE; URINE PHENCYCLIDINE SCREEN NEGATIVE
[2016-12-06 12:54] LABS: ALANINE AMINOTRANSFERASE 32 U/L (9-52); ALBUMIN 3.4 g/dL (3.5-5.0); ALKALINE PHOSPHATASE 112 U/L (38-126); ANION GAP 9 (5-19); ASPARTATE AMINO TRANSFERASE 29 U/L (14-36); BILIRUBIN,DIRECT 0.4 mg/dL (0.0-0.4); BILIRUBIN,TOTAL 1.4 mg/dL (0.2-1.3); BLOOD UREA NITROGEN 8 mg/dL (7-20); CARBON DIOXIDE 22 mmol/L (22-30); CHLORIDE 106 mmol/L (98-107); CREATININE RESULT 0.63 mg/dL (0.52-1.25); GLUCOSE 72 mg/dL (75-110); POTASSIUM 3.8 mmol/L (3.6-5.0); SODIUM 136.9 mmol/L (137-145); TOTAL PROTEIN 6.4 g/dL (6.3-8.2)
[2016-12-06] MEDS ORDERED: BUTALB/ACETAMINOPHEN/CAFFEINE 1 TAB EACH ONE (17:21)
[2016-12-06] MEDS: BUTALB/ACETAMINOPHEN/CAFFEINE 1 TAB EACH PO PRN ×2 (17:25→22:44)
[2016-12-06] MEDS ORDERED: GABAPENTIN 300 MG CAPSULE PO ONE (18:00)
[2016-12-06] MEDS: MAGNESIUM OXIDE 400 MG TABLET PO SCH (18:09)
[2016-12-06] MEDS ORDERED: ENOXAPARIN SODIUM INJ 40 MG/0.4 ML DISP.SYRIN SUBCUT ONE (22:00)
[2016-12-07] MEDS: BUTALB/ACETAMINOPHEN/CAFFEINE 1 TAB EACH PO PRN (06:36)
--- NOTE | 2016-12-07 07:45 | PDOC PROGRESS REPORT ---
Subjective Progress Note for:: 12/07/16 Subjective:: doing well, pt reports that neurontin, fioricet, magnesium oxide Physical Exam - Physical Exam Vital Signs: Temp Pulse Resp BP Pulse Ox 97.8 F 82 16 94/55 L 98 12/07/16 03:39 12/07/16 03:39 12/07/16 03:39 12/07/16 03:39 12/07/16 03:39 Intake & Output 12/06/16 12/07/16 12/08/16 06:59 06:59 06:59 Intake Total 300 Output Total 900 Balance -600 Weight 67.9 kg General appearance: PRESENT: no acute distress, well-developed, well-nourished Head exam: PRESENT: atraumatic, normocephalic Neck exam: PRESENT: full ROM Cardiovascular exam: PRESENT: bradycardia Pulses: PRESENT: normal dorsalis pedis pul, +2 pedal pulses bilateral GI/Abdominal exam: PRESENT: normal bowel sounds, soft. ABSENT: distended, guarding, mass, organolmegaly, rebound, tenderness Rectal exam: PRESENT: deferred Extremities exam: PRESENT: full ROM. ABSENT: calf tenderness, clubbing, pedal edema Neurological exam: PRESENT: alert, awake, oriented to person, oriented to place , oriented to time, oriented to situation, abnormal gait, ataxia, CN II-XII grossly intact, other - slowed speech. ABSENT: motor sensory deficit Psychiatric exam: PRESENT: appropriate affect, normal mood. ABSENT: homicidal ideation, suicidal ideation Skin exam: PRESENT: dry, intact, warm. ABSENT: cyanosis, rash Result Laboratory Results: 12/06/16 12:16 12/06/16 12:16 12/06/16 12/06/16 12/06/16 11:29 12:16 12:16 WBC 11.6 H RBC 4.12 Hgb 12.8 Hct 37.8 MCV 92 MCH 31.1 MCHC 34.0 RDW 14.5 H Plt Count 161 Seg Neutrophils % 78.1 H Lymphocytes % 13.2 Monocytes % 8.1 Eosinophils % 0.3 Basophils % 0.3 Absolute Neutrophils 9.1 H Absolute Lymphocytes 1.5 Absolute Monocytes 0.9 Absolute Eosinophils 0.0 Absolute Basophils 0.0 Sodium 136.9 L Potassium 3.8 Chloride 106 Carbon Dioxide 22 Anion Gap 9 BUN 8 Creatinine 0.63 Est GFR ( Amer) > 60 Est GFR (Non-Af Amer) > 60 Glucose 72 L Calcium 9.0 Total Bilirubin 1.4 H AST 29 ALT 32 Alkaline Phosphatase 112 Total Protein 6.4 Albumin 3.4 L Urine Color YELLOW Urine Appearance SLIGHTLY-CLOUDY Urine pH 6.0 Ur Specific [place] 1.013 Urine Protein NEGATIVE Urine Glucose (UA) NEGATIVE Urine Ketones 20 H Urine Blood NEGATIVE Urine Nitrite NEGATIVE Ur Leukocyte Esterase NEGATIVE Urine WBC (Auto) 3 Urine RBC (Auto) 3 Assessment & Plan - Diagnosis (1) Headache Qualifiers: Headache type: unspecified Headache chronicity pattern: acute headache Intractability: not intractable Qualified Code(s): R51 - Headache Is this a current diagnosis for this admission?: YesPlan: Pt reports JEAN BAPTISTE improved. Reviewed protein with meals and hydration. CLIENT RELATIONSHIP CONSULTANT helped pt set alarms on her phone. Pt will complete 24 hr UTP at home. She will f/u with me on Saturday. Pt to return if JEAN BAPTISTE worsens. - Time Time Spent with patient: 15-24 minutes Critical Time spent with patient: Less than 15 minutes Medications reviewed and adjusted accordingly: Yes Anticipated discharge: Home Within: within 24 hours - Inpatient Certification Based on my medical assessment, after consideration of the patient's comorbidities, presenting symptoms, or acuity I expect that the services needed warrant INPATIENT care.: No I certify that my determination is in accordance with my understanding of Medicare's requirements for reasonable and necessary INPATIENT services [42 CFR 412.3e].: No Post Hospital Care: D/C Sales Expert [employer] Documentation - Plan Summary Plan Summary: discharge to home.
--- NOTE | 2016-12-07 07:52 | PDOC DISCHARGE SUMMARY ---
General - Admit/Disc Date/PCP Admission Date/Primary Care Provider: 12/06/16 16:42 ELIF BUSTOS PA-C Discharge Date: 12/07/16 - Discharge Diagnosis (1) Headache Is this a current diagnosis for this admission?: YesSummary: JEAN BAPTISTE improved with meds. Continue meds as outpt. Complete 24 hr utp - Additional Information Discharge Diet: As Tolerated, Regular Discharge Activity: Activity As Tolerated, No Driving - while taking fioricet Home Medications: Pnv with Ca,No.72/Iron/FA [Pnv Plus Multivit Tab] 1 tab PO DAILY Walker [Folding Walker] 1 each MC ASDIR PRN #1 each 11/05/16 Doxylamine/Pyridoxine HCl [Diclegis Dr 10-10 mg Tablet] 1 each PO DAILY Enoxaparin Sodium [Lovenox] 40 mg SQ DAILY 12/03/16 Butalb/Acetaminophen/Caffeine [Fioricet (50-325-40 mg) Tablet] 1 tab PO Q4HP PRN #30 each 12/07/16 Enoxaparin Sodium [Lovenox Inj 40 mg/0.4 ml Disp.syrin] 40 mg SUBCUT QPM #0 disp.syrin 12/07/16 Gabapentin [Neurontin 300 mg Capsule] 300 mg PO QHS #30 capsule 12/07/16 Magnesium Oxide [Mag-Ox 400 mg Tablet] 400 mg PO TID #90 tablet 12/07/16 History of Present Illness Patient complains of: Headache - resolved. History of Present Illness: LO DOWNS is a 36 year old female who is 36wks with h/o TBI and intermittent JEAN BAPTISTE. She was admitted for management of JEAN BAPTISTE last evening and now is improved. She will f/u in office for continued care. Hospital Course Hospital Course: see above Physical Exam - Physical Exam Vital Signs: Temp Pulse Resp BP Pulse Ox 97.8 F 82 16 94/55 L 98 12/07/16 03:39 12/07/16 03:39 12/07/16 03:39 12/07/16 03:39 12/07/16 03:39 Intake & Output 12/06/16 12/07/16 12/08/16 06:59 06:59 06:59 Intake Total 300 Output Total 900 Balance -600 Weight 67.9 kg General appearance: PRESENT: no acute distress, well-developed, well-nourished Respiratory exam: PRESENT: clear to auscultation jennifer, symmetrical, unlabored Cardiovascular exam: PRESENT: RRR. ABSENT: diastolic murmur, rubs, systolic murmur GI/Abdominal exam: PRESENT: normal bowel sounds, soft. ABSENT: distended, guarding, mass, organolmegaly, rebound, tenderness Rectal exam: PRESENT: deferred Neurological exam: PRESENT: alert, awake, oriented to person, oriented to place , oriented to time, oriented to situation, abnormal gait, ataxia, CN II-XII grossly intact. ABSENT: motor sensory deficit Psychiatric exam: PRESENT: appropriate affect, normal mood. ABSENT: homicidal ideation, suicidal ideation Result Laboratory Results: 12/06/16 12:16 12/06/16 12:16 12/06/16 12/06/16 12/06/16 11:29 12:16 12:16 WBC 11.6 H RBC 4.12 Hgb 12.8 Hct 37.8 MCV 92 MCH 31.1 MCHC 34.0 RDW 14.5 H Plt Count 161 Seg Neutrophils % 78.1 H Lymphocytes % 13.2 Monocytes % 8.1 Eosinophils % 0.3 Basophils % 0.3 Absolute Neutrophils 9.1 H Absolute Lymphocytes 1.5 Absolute Monocytes 0.9 Absolute Eosinophils 0.0 Absolute Basophils 0.0 Sodium 136.9 L Potassium 3.8 Chloride 106 Carbon Dioxide 22 Anion Gap 9 BUN 8 Creatinine 0.63 Est GFR ( Amer) > 60 Est GFR (Non-Af Amer) > 60 Glucose 72 L Calcium 9.0 Total Bilirubin 1.4 H AST 29 ALT 32 Alkaline Phosphatase 112 Total Protein 6.4 Albumin 3.4 L Urine Color YELLOW Urine Appearance SLIGHTLY-CLOUDY Urine pH 6.0 Ur Specific [place] 1.013 Urine Protein NEGATIVE Urine Glucose (UA) NEGATIVE Urine Ketones 20 H Urine Blood NEGATIVE Urine Nitrite NEGATIVE Ur Leukocyte Esterase NEGATIVE Urine WBC (Auto) 3 Urine RBC (Auto) 3 Plan Discharge Plan: Discharge to home with f/u in the office. Time Spent: Less than 30 Minutes
[2016-12-07] MEDS ORDERED: ENOXAPARIN SODIUM INJ 40 MG/0.4 ML DISP.SYRIN SUBCUT SCH ×2 (08:00→18:00)
[2016-12-07 08:08] LABS: HEMATOCRIT 36.1 % (36.0-47.0); HGB HCT DIFFERENCE -0.1; MEAN CORPUSCULAR HEMOGLOBIN 30.8 pg (27.0-33.4); MEAN CORPUSCULAR HGB CONC 33.1 g/dL (32.0-36.0); MEAN CORPUSCULAR VOLUME 93 fl (80-97); RED BLOOD COUNT 3.88 10^6/uL (3.72-5.28); RED CELL DISTRIBUTION WIDTH 14.3 % (11.5-14.0); WHITE BLOOD COUNT 8.3 10^3/uL (4.0-10.5)
[2016-12-07] MEDS ORDERED: GABAPENTIN 300 MG CAPSULE PO SCH (10:00)
[2016-12-07] MEDS: MAGNESIUM OXIDE 400 MG TABLET PO SCH ×3 (10:02→17:44)
[2016-12-07 17:12] VITALS: BP 108/67
[2016-12-07 18:48] LABS: URINE PROTEIN 13.1 mg/dL (<12)
[2016-12-07 18:49] LABS: URINE CREATININE 31.6 mg/dL (16-327)
--- NOTE | 2016-12-11 17:49 | L&D Progress Notes ---
PROGRESS NOTES Datetime Report Generated by CPN: 12/11/2016 17:48 PROGRESS NOTE Impression: Normal Progression of Labor; Gest. HTN/PreEclampsia/Eclampsia Procedures: Sterile Vag Exam Plan: Continue Present Management; Induction; Cervical Ripening Informed Consent Obtained: Vaginal Delivery; Section Delivery; Vaginal After ; Risks, Benefits and Alternatives Discussed Informed Consent Obtained: Risks, Benefits and Alternatives Discussed Vital Signs : Reviewed; Within Normal Limits Comment: 36yo at 36+4ega and AMA, c/b h/o TBI now with Atypical PreE. cvx 08/15/hi. reassuring FWB. FB to tension placed. will begin low dose pitocin at approx midnight. and re-eval in am. VAGINAL EXAM Dilatation: 1 Dilatation: 1 Effacement: 25 Effacement: 25 Station: -3 Station: -3 Contractions: rare Contractions: resolved MEMBRANES Membranes: Intact FETUS A FHR - Baseline: 125 Monitoring: External US Variability: Moderate 6-25bpm Accelerations: 10X10 Decelerations: None : 36.0 Presentation: Vertex Presentation: Vertex SIGNATURE SIGNATURE: [id number] SIGNATURE: [id number] Signature: Electronically signed by Cathleen North MD ([facility]) on 12/11/2016 at 17:48 with User ID: [email or web address]
--- NOTE | 2016-12-12 08:57 | L&D Progress Notes ---
PROGRESS NOTES Datetime Report Generated by LISBET: 12/12/2016 08:57 PROGRESS NOTE Impression: Normal Progression of Labor; Reassuring Heart Rate; Reactive Non Stress Test; Gest. HTN/PreEclampsia/Eclampsia Procedures: Artificial ROM; Sterile Vag Exam Plan: Continue Present Management; Induction; Cervical Ripening; Anticipate Vaginal Delivery Informed Consent Obtained: Vaginal Delivery; Induction of Labor; Vaginal After ; Risks, Benefits and Alternatives Discussed Vital Signs : Reviewed; Within Normal Limits Comment: 36yo at 36+5ega here for IOL due to Atypical PreE admitted yesterday and initiated on FB cervical ripening and pitocin. Consulted M Dr. Braun and Dr. Franklin re: pt with 480mg proteinuria and persistent JEAN BAPTISTE. M recommended delivery and Magnesium. 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 She is doing well. FB in vagina this am and removed easily. Cvx /-2. Plan for epidural and then AROM with IUPC and FSE. CAT I FHR tracing and reassuring FWB. Ctx q 5 minutes on 8 of pitocin. Anticpate . pelvis adequate for ALEXYS. EFW 6-7# VAGINAL EXAM Dilatation: 3 Effacement: 50 Station: -2 FETUS A FHR - Baseline: 130 Monitoring: External US Variability: Moderate 6-25bpm Accelerations: 15X15 Decelerations: None FHR Category: Category I FETUS C SIGNATURE: [id number] Signature: with User ID: [email or web address]
--- NOTE | 2016-12-12 13:50 | L&D Progress Notes ---
PROGRESS NOTES Datetime Report Generated by CPN: 12/12/2016 13:50 PROGRESS NOTE Impression: Normal Progression of Labor; Reassuring Heart Rate; Gest. HTN/PreEclampsia/Eclampsia Procedures: Artificial ROM; Intrauterine Pressure Catheter; Scalp Electrode; Sterile Vag Exam Plan: Continue Present Management; Induction; Anticipate Vaginal Delivery Informed Consent Obtained: Vaginal Delivery; Induction of Labor; Risks, Benefits and Alternatives Discussed Vital Signs : Reviewed; Within Normal Limits Comment: 36yo at 36+5ega here for IOL and h/o . Cvx 4/50/-2. AROM with clear fluid and FSE and IUPC placed. Epidural in place and pt comfortable VAGINAL EXAM Dilatation: 4 Effacement: 50 Station: -2 MEMBRANES Membranes: Ruptured Amniotic Fluid Color: Clear FETUS A FHR - Baseline: 125 Variability: Moderate 6-25bpm Accelerations: 15X15 Decelerations: None FHR Category: Category I FETUS C SIGNATURE: [id number];[id number] Signature: with User ID: [email or web address]
--- NOTE | 2016-12-12 15:57 | L&D Progress Notes ---
PROGRESS NOTES Datetime Report Generated by CPN: 12/12/2016 15:57 PROGRESS NOTE Impression: Normal Progression of Labor; Gest. HTN/PreEclampsia/Eclampsia Procedures: Intrauterine Pressure Catheter; Scalp Electrode; Sterile Vag Exam Plan: Continue Present Management; Induction; Transfer Informed Consent Obtained: Vaginal Delivery; Induction of Labor; Vaginal After ; Risks, Benefits and Alternatives Discussed Vital Signs : Reviewed; Within Normal Limits Comment: FHR with variables. MVUs 200 on 14 of pitocin. [place] cut off and FSE placed. MVUs still in 200s. Variables resolved and now doing well. Continue to monitor. May need small dose of pitocin if MVUs fall off. Anticipate . VAGINAL EXAM Dilatation: 5 Effacement: 80 Station: -1 MEMBRANES Membranes: Ruptured Amniotic Fluid Color: Clear FETUS A FHR - Baseline: 125 Monitoring: Internal Scalp Electrode Variability: Moderate 6-25bpm Accelerations: 15X15 Decelerations: Variable FETUS C SIGNATURE: [id number];[id number] Signature: with User ID: [email or web address]
--- NOTE | 2016-12-12 23:43 | Delivery Summary ---
Del Sum A-C Datetime Report Generated by CPN: 12/12/2016 23:43 DELIVERY PERSONNEL DELIVERY PERSONNEL: [id number];[id number] Delivery Doctor:: aCthleen North MD Labor and Delivery Nurse:: Betty Castillo RN Nursery Nurse:: Jackie Hubbard RN Gis Scientist/WHEEL MILL OPERATOR: Arvin De Souza CNA MATERNAL INFORMATION Delivery Anesthesia: Epidural Medications After Delivery: Pitocin Drip 20 Units/1000ml NSS; Other-Please Comment Meds After Delivery Comment: Cytotec 1000 mcg ND Estimated Blood Loss (ml): 250 Maternal Complications: Other Other Maternal Complications: TOLAC Provider Comments: VMI delivered easily in MARITA presentation. Loose nuchal times two easily reduced. SHoulders and body delivered without difficulty. cord doubly clamped and cut and to maternal chest/abdomen for NRP. Placenta delivered intact spontaneously. FF at U. Laceration repaired. 1000mcg of cytotec placed per rectum for uterine tone due to patient on magnesium. Good hemostasis. Mother and baby stable upon the provider leaving the room. LABOR SUMMARY EDC: 01/04/2017 00:00 No. Babies in Womb: 1 Attempted: Yes Labor Anesthesia: Epidural LABOR INFORMATION Reason for Induction: Pre-Eclampsia Onset of Labor: 12/12/2016 11:52 Complete Dilatation: 12/12/2016 19:32 Cervical Ripening Agents: Mercedes Balloon; Other Other Ripening Agents: pitocin Oxytocin: Induction Group B Beta Strep: unk Antibiotics # of Doses: 2 Antibiotics Time of Last Dose: 1230 Name of Antibiotic Given: Vancomycin MEMBRANES Membranes Rupture Method: Artificial Rupture of Membranes: 12/12/2016 11:50 Length of Rupture (hr): 8.00 Amniotic Fluid Color: Clear Amniotic Fluid Amount: Moderate Amniotic Fluid Odor: Normal STAGES OF LABOR Stage 1 hr: 7 Stage 1 min: 40 Stage 2 hr: 0 Stage 2 min: 18 Stage 3 hr: 0 Stage 3 min: 4 Total Time in Labor hr: 8 Total Time in Labor min: 2 VAGINAL DELIVERY Episiotomy: None Laceration Extension: First Degree Laceration Type: Perineal Laceration Repair: Yes Laceration Repair Note: 1st degree perineal laceration repaired in usual fashion Sponge Count Correct: N/A Sharps Count Correct: Yes CSECTION DELIVERY Primary Indication: N/A Secondary Indication: N/A CSection Incidence: N/A Labor: N/A Elective: N/A CSection Incision: N/A BABY A INFORMATION Infant Delivery Date/Time: 12/12/2016 19:50 Method of Delivery: Vaginal Born in Route : No : Successful Forceps: N/A Vacuum Extraction: N/A Shoulder Dystocia : No PRESENTATION/POSITION BABY A Presentation: Cephalic Cephalic Presentation: Vertex Vertex Position: Left Occipital Anterior PLACENTA INFORMATION BABY A Placenta Delivery Time : 12/12/2016 19:54 Placenta Method of Delivery: Spontaneous Placenta Status: Delivered SCORES BABY A Heart Rate 1 min: >100 bpm Resp Effort 1 min: Good Cry Reflex Irritability 1 min: Cough or Sneeze or Pulls Away Muscle Tone 1 min: Active Motion Color 1 min: Blue/Pale Resuscitation Effort 1 min: Tactile Stimulation SCORE 1 MIN: 8 Heart Rate 5 min: >100 bpm Resp Effort 5 min: Good Cry Reflex Irritability 5 min: Cough or Sneeze or Pulls Away Muscle Tone 5 min: Active Motion Color 5 min: Body [place], Extremities Blue Resuscitation Effort 5 min: Tactile Stimulation SCORE 5 MIN: 9 INFORMATION BABY A Gestational Age at Delivery: 36.5 Gestational Status: Late - 34- 36.6 Weeks Outcome : Liveborn Infant Condition : Stable Sex: Male IDENTIFICATION BABY A Verification Date/Time: 12/12/2016 20:04 ID Band Number: [id number] Mother's Name Verified: Yes Infant RN Verifying : R Escobar, RN Additional Verifying Personnel: D Daniella, US WEIGHT/LENGTH BABY A Infant Birthweight (gm): 2590 Infant Weight (lb): 5 Weight (oz): 11 Infant Length (in): 18.75 Infant Length (cm): 47.63 CORD INFORMATION BABY A No. Cord Vessels: 3 Nuchal Cord : Around Neck x2, Loose Cord Blood Taken: Yes-For Storage (Mom's Blood type +) Infant Suction: Mouth; Nose ASSESSMENT BABY A Skin to Skin: Yes ASSESSMENT BABY B Skin to Skin: Yes Skin to Skin Time (min): 60 SIGNATURES Signature: Electronically signed by Cathleen North MD ([facility]) on 12/12/2016 at 20:44 with User ID: [email or web address]
--- NOTE | 2016-12-13 07:19 | L&D Progress Notes ---
PROGRESS NOTES Datetime Report Generated by CPN: 12/13/2016 07:18 PROGRESS NOTE Impression Other: doing well pp Plan: Transfer Plan Other: to floor Informed Consent Obtained- Other: has been on mag for 12hr post delivery Vital Signs : Reviewed; Within Normal Limits Comment: 36yo now approx 12 hours s/p successful . Doing well. BPs stable. Diuresing well. Meets criteria for transfer to the floor. Will discontinue Magnesium sulfate at approx 0800 and transfer to the floor. Restart Lovenox and continue pp FETUS C SIGNATURE: [id number];[id number];[id number] SIGNATURE: [id number];[id number] Signature: with User ID: [email or web address]
== END 2016-12-07 18:00 | disposition home or self-care (01) ==
LOC: LC 11:00 → LR 16:42 → UNDOADMOB 16:45 → LR 16:45 → 2S 20:27
PROVIDERS: ADMIT Student in an Organized Health Care Education/Training Program; ATTEND Student in an Organized Health Care Education/Training Program
PROC: 4A0HXCZ Measurement of Products of Conception, Cardiac Rate, External Approach (ICD-10-PCS; principal; 2016-12-06)
DX: O26.893 Other specified pregnancy related conditions, third trimester (principal); R51 Headache; Z3A.36 36 weeks gestation of pregnancy; O13.3 Gestational [pregnancy-induced] hypertension without significant proteinuria, third trimester; O14.93 Unspecified pre-eclampsia, third trimester; E16.2 Hypoglycemia, unspecified; S06.9X0S Unspecified intracranial injury without loss of consciousness, sequela; R27.0 Ataxia, unspecified; R47.81 Slurred speech; X58.XXXS Exposure to other specified factors, sequela; Z86.718 Personal history of other venous thrombosis and embolism
CPT/HCPCS: 59025; 36415 ×2; 82570; 84156; 85025; 85027; 80053; 81001; 80307; G0378 ×2; G0379; J3490 ×7; J1650 ×2; J2405

== ENCOUNTER 2016-12-11 12:17 | Inpatient (IN) | payer MEDICAID ==
[2016-12-11] MEDS ORDERED: RINGERS SOLUTION,LACTATED 1,000 ML IV ONE (13:29)
[2016-12-11 13:35] LABS: APPEARANCE,URINE CLEAR; BILIRUBIN,URINE NEGATIVE (NEGATIVE); GLUCOSE, URINE NEGATIVE (NEGATIVE); KETONES,URINE NEGATIVE (NEGATIVE); LEUKOCYTE ESTERASE,URINE NEGATIVE (NEGATIVE); NITRITE,URINE NEGATIVE (NEGATIVE); PROTEIN,URINE NEGATIVE (NEGATIVE); URINE SPECIFIC GRAVITY 1.006; UROBILINOGEN,URINE NEGATIVE mg/dL (<2.0)
[2016-12-11 13:50] LABS: URINE METHADONE SCREEN NEGATIVE; URINE OPIATES LOW NEGATIVE; URINE PHENCYCLIDINE SCREEN NEGATIVE
[2016-12-11 13:56] LABS: ABSOLUTE LYMPHOCYTES (AUTO) 1.7 10^3/uL (0.5-4.7); ABSOLUTE MONOCYTES (AUTO) 0.9 10^3/uL (0.1-1.4); ABSOLUTE NEUT (AUTO) 8.1 10^3/uL (1.7-8.2); BASOPHILS % (AUTO) 0.5 % (0-2); EOSINOPHILS % (AUTO) 0.4 % (0-6); HEMATOCRIT 37.6 % (36.0-47.0); HEMOGLOBIN 12.5 g/dL (12.0-15.5); HGB HCT DIFFERENCE -0.1; LYMPHOCYTES % (AUTO) 15.5 % (13-45); MEAN CORPUSCULAR HEMOGLOBIN 30.6 pg (27.0-33.4); MEAN CORPUSCULAR HGB CONC 33.4 g/dL (32.0-36.0); MEAN CORPUSCULAR VOLUME 92 fl (80-97); MONOCYTES % (AUTO) 8.5 % (3-13); RED BLOOD COUNT 4.09 10^6/uL (3.72-5.28); RED CELL DISTRIBUTION WIDTH 14.3 % (11.5-14.0); SEGMENTED NEUTROPHILS % (AUTO) 75.1 % (42-78); WHITE BLOOD COUNT 10.8 10^3/uL (4.0-10.5)
[2016-12-11 13:56] LABS: URINE BARBITURATES SCREEN UNCONFIRMED POSITIVE
[2016-12-11 21:15] LABS: ALANINE AMINOTRANSFERASE 41 U/L (9-52); ALBUMIN 3.4 g/dL (3.5-5.0); ALKALINE PHOSPHATASE 116 U/L (38-126); ANION GAP 10 (5-19); ASPARTATE AMINO TRANSFERASE 29 U/L (14-36); BILIRUBIN,DIRECT 0.2 mg/dL (0.0-0.4); BILIRUBIN,TOTAL 0.9 mg/dL (0.2-1.3); BLOOD UREA NITROGEN 10 mg/dL (7-20); CALCIUM 9.3 mg/dL (8.4-10.2); CARBON DIOXIDE 24 mmol/L (22-30); CHLORIDE 104 mmol/L (98-107); CREATININE RESULT 0.65 mg/dL (0.52-1.25); GLUCOSE 111 mg/dL (75-110); LDH 353 U/L (313-618); POTASSIUM 3.7 mmol/L (3.6-5.0); SODIUM 137.7 mmol/L (137-145); TOTAL PROTEIN 6.2 g/dL (6.3-8.2); URIC ACID 5.3 mg/dL (2.5-7.0)
[2016-12-11] MEDS ORDERED: VANCOMYCIN HCL 1,000 MG in DEXTROSE 5%-WATER 250 ML IV SCH (22:00)
[2016-12-11] MEDS ORDERED: ONDANSETRON HCL INJ/PF 4 MG/2 ML SDV IV ONE (22:05)
[2016-12-11] MEDS ORDERED: ONDANSETRON HCL INJ/PF 4 MG/2 ML SDV ONE (22:07)
[2016-12-11] MEDS ORDERED: OXYTOCIN/NORMAL SALINE 20 UNIT/1,000 ML RTUINJ ONE (23:44)
[2016-12-11] MEDS ORDERED: MAGNESIUM SULFATE 4 GM/100 ML RTUPB IV ONE (23:44)
[2016-12-12] MEDS ORDERED: MAGNESIUM SULFATE 100 ML IV ONE (00:01)
[2016-12-12] MEDS ORDERED: MAGNESIUM SULFATE 500 ML IV PRN (00:34)
[2016-12-12] MEDS: MAGNESIUM SULFATE/D5W 100 ML IV PRN ×2 (00:47→00:58)
[2016-12-12] MEDS: OXYTOCIN/NORMAL SALINE 1,000 ML IV PRN ×4 (00:47→00:58)
[2016-12-12] MEDS: DINOPROSTONE 10 MG VAGINAL INSERT.SR PV PRN ×2 (00:47→00:58)
[2016-12-12] MEDS: RINGERS SOLUTION,LACTATED 1,000 ML IV PRN ×2 (01:21→03:59)
[2016-12-12] MEDS ORDERED: BUTALB/ACETAMINOPHEN/CAFFEINE 1 TAB EACH ONE ×4 (01:45→21:02)
[2016-12-12] MEDS ORDERED: ZOLPIDEM TARTRATE 5 MG TABLET ONE (01:52)
[2016-12-12] MEDS ORDERED: EPHEDRINE SULFATE INJ 50 MG/1 ML AMPULE ONE (10:15)
[2016-12-12] MEDS ORDERED: BUPIVACAINE HCL 0.25 % INJ/PF (2.5 MG/1 ML) 30 ML VIAL ONE (10:15)
[2016-12-12] MEDS ORDERED: FENTANYL/BUPIVACAINE/NS/PF 200 MCG/100 ML RTUINJ EPI ONE (10:15)
[2016-12-12] MEDS: VANCOMYCIN HCL INJ 1000 MG VIAL IV SCH ×2 (16:30→21:31)
[2016-12-12] MEDS ORDERED: LIDOCAINE 1% INJ-PF (10 MG/ML) 30 ML SDV ONE (19:36)
[2016-12-12] MEDS ORDERED: METHYLERGONOVINE MALEATE INJ/PF 0.2 MG/1 ML AMPULE ONE (19:36)
[2016-12-12] MEDS ORDERED: MISOPROSTOL 0.2 MG TABLET ONE (19:36)
[2016-12-12] MEDS ORDERED: OXYTOCIN/NORMAL SALINE 0 UNIT/0 ML RTUINJ ONE (19:36)
[2016-12-12] MEDS ORDERED: BENZOCAINE/MENTHOL AEROSOL SPRAY 56 ML TOP PRN (20:34)
[2016-12-12] MEDS ORDERED: ACETAMINOPHEN 650 MG SUPP.RECT PR PRN (20:34)
[2016-12-12] MEDS ORDERED: DIPH/PERTUSS(ACELL)/TETANUS VAC/PF 0.5 ML SYR (>=10YO) IM PRN (20:34)
[2016-12-12] MEDS ORDERED: MAGNESIUM HYDROXIDE SUSP 30 ML UDCUP PO PRN (20:34)
[2016-12-12] MEDS ORDERED: MEASLES,MUMPS&RUBELLA VACC/PF 0.5 ML VIAL SUBCUT PRN (20:34)
[2016-12-12] MEDS ORDERED: PROMETHAZINE HCL INJ 25 MG/1 ML VIAL IV PRN (20:34)
[2016-12-12] MEDS ORDERED: PROMETHAZINE HCL 25 MG SUPP.RECT PR PRN (20:34)
[2016-12-12] MEDS ORDERED: NA PHOS,M-B/NA PHOS,DI-BA (ADULT) 133 ML ENEMA PR PRN (20:34)
[2016-12-12] MEDS ORDERED: GLYCERIN/WITCH HAZEL LEAF 1 EACH MED..PAD TP PRN (20:34)
[2016-12-12] MEDS ORDERED: ZOLPIDEM TARTRATE 5 MG TABLET PO PRN ×2 (20:34→23:18)
[2016-12-12] MEDS ORDERED: ACETAMINOPHEN WITH CODEINE #3 TABLET PO PRN ×2 (20:34)
[2016-12-12] MEDS ORDERED: OXYTOCIN/NORMAL SALINE 1,000 ML IV PRN ×2 (20:34→23:18)
[2016-12-12] MEDS ORDERED: DIBUCAINE 1% OINTMENT 28 GM TP PRN (20:34)
[2016-12-12] MEDS ORDERED: PROMETHAZINE HCL 25 MG TABLET PO PRN (20:34)
[2016-12-12] MEDS ORDERED: PSEUDOEPHEDRINE HCL 30 MG TABLET PO PRN (20:34)
[2016-12-12] MEDS ORDERED: DIPHENHYDRAMINE HCL 25 MG CAPSULE PO PRN (20:34)
[2016-12-12] MEDS ORDERED: FLUCONAZOLE 100 MG TABLET PO ONE (22:15)
[2016-12-12] MEDS ORDERED: FLUCONAZOLE 100 MG TABLET ONE (22:16)
[2016-12-12] MEDS ORDERED: IBUPROFEN 800 MG TABLET ONE (22:17)
[2016-12-12] MEDS: IBUPROFEN 800 MG TABLET PO SCH (22:17)
[2016-12-12] MEDS ORDERED: FAMOTIDINE 20 MG TABLET ONE (22:17)
[2016-12-12] MEDS: FAMOTIDINE 20 MG TABLET PO SCH (22:18)
[2016-12-12] MEDS ORDERED: MAG HYDROX/AL HYDROX/SIMETH SUSP 30 ML UDCUP PO PRN (23:18)
[2016-12-12] MEDS ORDERED: ACETAMINOPHEN 325 MG TABLET PO PRN (23:18)
[2016-12-12] MEDS ORDERED: DINOPROSTONE 10 MG VAGINAL INSERT.SR PV ONE (23:18)
[2016-12-13] MEDS: RINGERS SOLUTION,LACTATED 1,000 ML IV PRN (04:42)
[2016-12-13] MEDS ORDERED: IBUPROFEN 800 MG TABLET ONE (06:05)
[2016-12-13] MEDS: IBUPROFEN 800 MG TABLET PO SCH ×3 (06:06→22:19)
[2016-12-13 07:01] LABS: HEMATOCRIT 41.9 % (36.0-47.0); HEMOGLOBIN 13.7 g/dL (12.0-15.5); HGB HCT DIFFERENCE -0.8; MEAN CORPUSCULAR HEMOGLOBIN 30.2 pg (27.0-33.4); MEAN CORPUSCULAR HGB CONC 32.7 g/dL (32.0-36.0); MEAN CORPUSCULAR VOLUME 93 fl (80-97); RED BLOOD COUNT 4.53 10^6/uL (3.72-5.28); RED CELL DISTRIBUTION WIDTH 14.6 % (11.5-14.0); WHITE BLOOD COUNT 17.9 10^3/uL (4.0-10.5)
[2016-12-13] MEDS ORDERED: BUTALB/ACETAMINOPHEN/CAFFEINE 1 TAB EACH ONE (07:32)
[2016-12-13] MEDS ORDERED: ENOXAPARIN SODIUM INJ 40 MG/0.4 ML DISP.SYRIN SUBCUT SCH (08:00)
[2016-12-13 08:26] LABS: PARTIAL THROMBOPLASTIN TIME 29.2 SEC (23.5-35.8); PROTHROMBIN TIME 13.4 SEC (11.4-15.4)
[2016-12-13 08:31] LABS: ALANINE AMINOTRANSFERASE 34 U/L (9-52); ALBUMIN 2.9 g/dL (3.5-5.0); ALKALINE PHOSPHATASE 97 U/L (38-126); ANION GAP 8 (5-19); ASPARTATE AMINO TRANSFERASE 27 U/L (14-36); BILIRUBIN,DIRECT 0.1 mg/dL (0.0-0.4); BILIRUBIN,TOTAL 0.7 mg/dL (0.2-1.3); BLOOD UREA NITROGEN 5 mg/dL (7-20); CALCIUM 7.9 mg/dL (8.4-10.2); CARBON DIOXIDE 24 mmol/L (22-30); CHLORIDE 101 mmol/L (98-107); CREATININE RESULT 0.69 mg/dL (0.52-1.25); GLUCOSE 86 mg/dL (75-110); POTASSIUM 4.2 mmol/L (3.6-5.0); SODIUM 133.4 mmol/L (137-145); TOTAL PROTEIN 5.4 g/dL (6.3-8.2); URIC ACID 4.9 mg/dL (2.5-7.0)
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
[2016-12-13] MEDS: FERROUS SULFATE 325 MG TABLET PO SCH ×2 (10:29→17:20)
[2016-12-13] MEDS: FAMOTIDINE 20 MG TABLET PO SCH ×2 (10:29→22:19)
[2016-12-13] MEDS: PRENATAL VITAMIN W-O CA NO5/FE FUMARATE/FA CAPSULE PO SCH (10:29)
[2016-12-13] MEDS: SENNOSIDES/DOCUSATE 8.6-50 MG 1 EACH TABLET PO SCH (10:30)
[2016-12-13] MEDS: DOCUSATE SODIUM 100 MG CAPSULE PO SCH ×2 (10:30→17:20)
[2016-12-13] MEDS ORDERED: BUTALB/ACETAMINOPHEN/CAFFEINE 1 TAB EACH PO PRN (11:51)
[2016-12-13] MEDS: MAGNESIUM OXIDE 400 MG TABLET PO SCH ×2 (13:28→17:20)
[2016-12-13 14:38] LABS: APPEARANCE,URINE CLEAR; BILIRUBIN,URINE NEGATIVE (NEGATIVE); GLUCOSE, URINE NEGATIVE (NEGATIVE); KETONES,URINE NEGATIVE (NEGATIVE); LEUKOCYTE ESTERASE,URINE TRACE (NEGATIVE); NITRITE,URINE NEGATIVE (NEGATIVE); PROTEIN,URINE NEGATIVE (NEGATIVE); URINE SPECIFIC GRAVITY 1.004; UROBILINOGEN,URINE NEGATIVE mg/dL (<2.0)
[2016-12-13] MEDS ORDERED: PHENAZOPYRIDINE HCL 200 MG TABLET PO ONE (16:00)
[2016-12-13] MEDS: NITROFURANTOIN MONOHYD/M-CRYST 100 MG CAPSULE PO SCH (17:19)
[2016-12-13] MEDS: ENOXAPARIN SODIUM INJ 40 MG/0.4 ML DISP.SYRIN SUBCUT SCH (22:15)
[2016-12-13] MEDS: GABAPENTIN 300 MG CAPSULE PO SCH (22:19)
[2016-12-13] MEDS: PHENAZOPYRIDINE HCL 200 MG TABLET PO SCH (22:20)
[2016-12-14] MEDS: IBUPROFEN 800 MG TABLET PO SCH ×3 (06:42→22:40)
[2016-12-14] MEDS: PHENAZOPYRIDINE HCL 200 MG TABLET PO SCH ×3 (06:42→22:39)
--- NOTE | 2016-12-14 07:38 | Delivery Summary ---
Del Sum A-C Datetime Report Generated by [facility]: 12/14/2016 07:38 DELIVERY PERSONNEL DELIVERY PERSONNEL: [id number] DELIVERY PERSONNEL: [id number] DELIVERY PERSONNEL: [id number];[id number] DELIVERY PERSONNEL: [id number];10,[id number] DELIVERY PERSONNEL: [id number];[id number] DELIVERY PERSONNEL: [id number];10,[id number] DELIVERY PERSONNEL: [id number];14,[id number] DELIVERY PERSONNEL: [id number] Delivery Doctor:: Cathleen North MD Labor and Delivery Nurse:: Betty Castillo RN Nursery Nurse:: Jackie Hubbard RN Welfare Officer/TUBE AND MANIFOLD BUILDER: Arvin De Souza CNA MATERNAL INFORMATION Delivery Anesthesia: Epidural Medications After Delivery: Pitocin Drip 20 Units/1000ml NSS; Other-Please Comment Meds After Delivery Comment: Cytotec 1000 mcg MT Estimated Blood Loss (ml): 250 Maternal Complications: Other Other Maternal Complications: TOLAC Provider Comments: VMI delivered easily in MARITA presentation. Loose nuchal times two easily reduced. SHoulders and body delivered without difficulty. cord doubly clamped and cut and infant to maternal chest/abdomen for NRP. Placenta delivered intact spontaneously. FF at U. Laceration repaired. 1000mcg of cytotec placed per rectum for uterine tone due to patient on magnesium. Good hemostasis. Mother and baby stable upon the provider leaving the room. LABOR SUMMARY EDC: 01/04/2017 00:00 No. Babies in Womb: 1 Attempted: Yes Labor Anesthesia: Epidural LABOR INFORMATION Reason for Induction: Pre-Eclampsia Onset of Labor: 12/12/2016 11:52 Complete Dilatation: 12/12/2016 19:32 Cervical Ripening Agents: Mercedes Balloon; Other Other Ripening Agents: pitocin Oxytocin: Induction Group B Beta Strep: unk Antibiotics # of Doses: 2 Antibiotics Time of Last Dose: 1230 Name of Antibiotic Given: Vancomycin MEMBRANES Membranes Rupture Method: Artificial Rupture of Membranes: 12/12/2016 11:50 Length of Rupture (hr): 8.00 Amniotic Fluid Color: Clear Amniotic Fluid Amount: Moderate Amniotic Fluid Odor: Normal STAGES OF LABOR Stage 1 hr: 7 Stage 1 min: 40 Stage 2 hr: 0 Stage 2 min: 18 Stage 3 hr: 0 Stage 3 min: 4 Total Time in Labor hr: 8 Total Time in Labor min: 2 VAGINAL DELIVERY Episiotomy: None Laceration Extension: First Degree Laceration Type: Perineal Laceration Repair: Yes Laceration Repair Note: 1st degree perineal laceration repaired in usual fashion Sponge Count Correct: N/A Sharps Count Correct: Yes CSECTION DELIVERY Primary Indication: N/A Secondary Indication: N/A CSection Incidence: N/A Labor: N/A Elective: N/A CSection Incision: N/A BABY A INFORMATION Infant Delivery Date/Time: 12/12/2016 19:50 Method of Delivery: Vaginal Born in Route : No : Successful Forceps: N/A Vacuum Extraction: N/A Shoulder Dystocia : No PRESENTATION/POSITION BABY A Presentation: Cephalic Cephalic Presentation: Vertex Vertex Position: Left Occipital Anterior PLACENTA INFORMATION BABY A Placenta Delivery Time : 12/12/2016 19:54 Placenta Method of Delivery: Spontaneous Placenta Method of Delivery: Spontaneous Placenta Status: Delivered SCORES BABY A Heart Rate 1 min: >100 bpm Resp Effort 1 min: Good Cry Reflex Irritability 1 min: Cough or Sneeze or Pulls Away Muscle Tone 1 min: Active Motion Color 1 min: Blue/Pale Resuscitation Effort 1 min: Tactile Stimulation SCORE 1 MIN: 8 Heart Rate 5 min: >100 bpm Resp Effort 5 min: Good Cry Reflex Irritability 5 min: Cough or Sneeze or Pulls Away Muscle Tone 5 min: Active Motion Color 5 min: Body [place], Extremities Blue Resuscitation Effort 5 min: Tactile Stimulation SCORE 5 MIN: 9 INFORMATION BABY A Gestational Age at Delivery: 36.5 Gestational Status: Late - 34- 36.6 Weeks Infant Outcome : Liveborn Condition : Stable Sex: Male Infant Sex: Male IDENTIFICATION BABY A Verification Date/Time: 12/12/2016 20:04 ID Band Number: [id number] Mother's Name Verified: Yes RN Verifying Infant: Roberto Cody RN Additional Verifying Personnel: Pavan Brewer, US WEIGHT/LENGTH BABY A Birthweight (gm): 2590 Infant Weight (lb): 5 Weight (oz): 11 Infant Length (in): 18.75 Infant Length (cm): 47.63 CORD INFORMATION BABY A No. Cord Vessels: 3 Nuchal Cord : Around Neck x2, Loose Cord Blood Taken: Yes-For Storage (Mom's Blood type +) Infant Suction: Mouth; Nose ASSESSMENT BABY A Skin to Skin: Yes ASSESSMENT BABY B Skin to Skin: Yes Skin to Skin Time (min): 60 SIGNATURES Signature: with User ID: Kenneth
[2016-12-14] MEDS: DOCUSATE SODIUM 100 MG CAPSULE PO SCH ×2 (09:34→18:46)
[2016-12-14] MEDS: MAGNESIUM OXIDE 400 MG TABLET PO SCH ×3 (09:34→18:46)
[2016-12-14] MEDS: PRENATAL VITAMIN W-O CA NO5/FE FUMARATE/FA CAPSULE PO SCH (09:34)
[2016-12-14] MEDS: NITROFURANTOIN MONOHYD/M-CRYST 100 MG CAPSULE PO SCH ×2 (09:34→18:46)
[2016-12-14] MEDS: FAMOTIDINE 20 MG TABLET PO SCH ×2 (09:34→22:40)
[2016-12-14] MEDS: SENNOSIDES/DOCUSATE 8.6-50 MG 1 EACH TABLET PO SCH (09:34)
[2016-12-14] MEDS: FERROUS SULFATE 325 MG TABLET PO SCH ×2 (09:34→18:46)
[2016-12-14] MEDS: LORAZEPAM 1 MG TABLET PO PRN ×2 (09:35→16:40)
[2016-12-14] MEDS: VENLAFAXINE HCL 75 MG CAP.SR.24H PO SCH (09:44)
--- NOTE | 2016-12-14 12:43 | PDOC PROGRESS REPORT ---
Subjective-OB Subjective: Post Delivery Day:2 36 year old s/p ppd2. Pt. reports her headache is improving and was given anxiety medication this am. Reports she is not depressed and is very happy with her baby and being alive but is just anxious about being . Bottlefeeding and going well. Planning on shower this AM and waiting on friend to come and discuss plans for discharge. Denies any other needs at this time Physical Exam (OB) Vital Signs: Temp Pulse Resp BP Pulse Ox 98.2 F 70 16 110/68 99 12/14/16 11:37 12/14/16 11:37 12/14/16 11:37 12/14/16 11:37 12/14/16 11:37 - General General Appearance: Appears well Note:: teary during visit - PIH/Pre-Eclampsia DTR's: 1 + Clonus: Negative Headache: Present Epigastric Pain: No Visual Changes: No - Lochia Lochia Amount: Scant < 10 ml Lochia Color: Rubra/Red - Abdomen Description: Soft Hernia Present: No Fundal Description: Firm, Midline Fundal Height: u/u - u/2 - Respiratory Respiratory Status: No respiratory distress - Extremities Upper extremity: Normal inspection Lower extremities: Normal inspection - Neurological Cognition: Normal Orientation: Alert, Oriented to person, Oriented to place - Psychological Associated symptoms: Normal affect, Normal mood, Anxious Objective-Diagnostic Laboratory: 12/13/16 06:28 12/13/16 07:47 12/13/16 14:15 Urine Color STRAW Urine Appearance CLEAR Urine pH 8.0 Ur Specific [place] 1.004 Urine Protein NEGATIVE Urine Glucose (UA) NEGATIVE Urine Ketones NEGATIVE Urine Blood LARGE H Urine Nitrite NEGATIVE Ur Leukocyte Esterase TRACE H Urine WBC (Auto) 7 Urine RBC (Auto) 21 Assessment and Plan(PN) - Assessment and Plan (1) Vaginal after () Is this a current diagnosis for this admission?: YesPlan: continue stay, anticipate d/c tomorrow (2) Preeclampsia Is this a current diagnosis for this admission?: YesPlan: continue to monitor - Time Spent with Patient Time with patient: Greater than 35 minutes Medications reviewed and adjusted accordingly: Yes - Disposition Anticipated Discharge: Home Within: within 24 hours
[2016-12-14] MEDS: ENOXAPARIN SODIUM INJ 40 MG/0.4 ML DISP.SYRIN SUBCUT SCH (22:41)
[2016-12-14] MEDS: GABAPENTIN 300 MG CAPSULE PO SCH (22:49)
[2016-12-15] MEDS: PHENAZOPYRIDINE HCL 200 MG TABLET PO SCH ×2 (05:12→13:02)
[2016-12-15] MEDS: IBUPROFEN 800 MG TABLET PO SCH ×2 (05:13→13:02)
[2016-12-15] MEDS ORDERED: ONDANSETRON HCL INJ/PF 4 MG/2 ML SDV IV PRN (05:39)
[2016-12-15] MEDS ORDERED: ONDANSETRON 4 MG TAB.RAPDIS PO PRN (05:40)
--- NOTE | 2016-12-15 08:14 | PDOC PROGRESS REPORT ---
Subjective-OB Subjective: Post Delivery Day: 36 year old. Denies any needs at this time In bed, c/o of nausea and vomiting, states she is suppose to go home in AM, not today, mother cannot come until Saturday, bottle feeding, scant lochia Physical Exam (OB) Vital Signs: Temp Pulse Resp BP Pulse Ox 98.0 F 65 18 97/54 L 94 12/15/16 04:23 12/15/16 04:23 12/15/16 04:23 12/15/16 04:12/15/16 04:23 - PIH/Pre-Eclampsia DTR's: 1 + Clonus: Negative Headache: Present Epigastric Pain: No Visual Changes: No - Lochia Lochia Amount: Small 10-25 ml Lochia Color: Rubra/Red - Abdomen Description: Soft, Round Hernia Present: No Fundal Description: Firm, Midline Fundal Height: u/u - u/2 Objective-Diagnostic Laboratory: 12/13/16 06:28 12/13/16 07:47 Assessment and Plan(PN) - Assessment and Plan (1) Vaginal after () Is this a current diagnosis for this admission?: Yes (2) Preeclampsia Is this a current diagnosis for this admission?: Yes - Time Spent with Patient Medications reviewed and adjusted accordingly: Yes - Disposition Anticipated Discharge: Home Within: within 24 hours - pt has multiple health issues and social, states she does not have anyone to help her at home,
--- NOTE | 2016-12-15 08:43 | PDOC PROGRESS REPORT ---
Subjective-OB Subjective: Post Delivery Day: 36 year old. Denies any needs at this time laying in bed, nausea improved Physical Exam (OB) Vital Signs: Temp Pulse Resp BP Pulse Ox 98.0 F 65 18 97/54 L 94 12/15/16 04:23 12/15/16 04:23 12/15/16 04:23 12/15/16 04:12/15/16 04:23 - PIH/Pre-Eclampsia DTR's: 1 + Clonus: Negative Headache: Present Epigastric Pain: No Visual Changes: No - Lochia Lochia Amount: Small 10-25 ml Lochia Color: Rubra/Red - Abdomen Description: Soft, Round Hernia Present: No Fundal Description: Firm, Midline Fundal Height: u/u - u/2 Objective-Diagnostic Laboratory: 12/13/16 06:28 12/13/16 07:47 Assessment and Plan(PN) - Assessment and Plan (1) Vaginal after () Is this a current diagnosis for this admission?: Yes (2) Preeclampsia Is this a current diagnosis for this admission?: Yes - Time Spent with Patient Time with patient: Less than 15 minutes Medications reviewed and adjusted accordingly: Yes - Disposition Anticipated Discharge: Home Within: Other - being d/c today, discussed with Dr. New, if baby stays she can have a nesting room.
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
[2016-12-15 09:04] VITALS: BP 95/51
[2016-12-15] MEDS: SENNOSIDES/DOCUSATE 8.6-50 MG 1 EACH TABLET PO SCH (09:39)
[2016-12-15] MEDS: FERROUS SULFATE 325 MG TABLET PO SCH (09:39)
[2016-12-15] MEDS: FAMOTIDINE 20 MG TABLET PO SCH (09:39)
[2016-12-15] MEDS: PRENATAL VITAMIN W-O CA NO5/FE FUMARATE/FA CAPSULE PO SCH (09:39)
[2016-12-15] MEDS: DOCUSATE SODIUM 100 MG CAPSULE PO SCH (09:39)
[2016-12-15] MEDS: MAGNESIUM OXIDE 400 MG TABLET PO SCH ×2 (09:39→13:02)
[2016-12-15] MEDS: NITROFURANTOIN MONOHYD/M-CRYST 100 MG CAPSULE PO SCH (09:40)
[2016-12-15] MEDS: VENLAFAXINE HCL 75 MG CAP.SR.24H PO SCH (09:42)
== END 2016-12-15 13:02 | disposition home or self-care (01) | DRG 775 ==
LOC: LR 12:17 → 2S 12-13 10:04
PROVIDERS: ADMIT Obstetrics & Gynecology; ATTEND Obstetrics & Gynecology
PROC: 0U7C7ZZ Dilation of Cervix, Via Natural or Artificial Opening (ICD-10-PCS; 2016-12-11)
PROC: 3E033VJ Introduction of Other Hormone into Peripheral Vein, Percutaneous Approach (ICD-10-PCS; 2016-12-11)
PROC: 4A1HXCZ Monitoring of Products of Conception, Cardiac Rate, External Approach (ICD-10-PCS; 2016-12-11)
PROC: 10E0XZZ Delivery of Products of Conception, External Approach (ICD-10-PCS; principal; 2016-12-12)
PROC: 0HQ9XZZ Repair Perineum Skin, External Approach (ICD-10-PCS; 2016-12-12)
PROC: 10907ZC Drainage of Amniotic Fluid, Therapeutic from Products of Conception, Via Natural or Artificial Opening (ICD-10-PCS; 2016-12-12)
DX: O34.211 Maternal care for low transverse scar from previous cesarean delivery (principal); O60.14X0 Preterm labor third trimester with preterm delivery third trimester, not applicable or unspecified; O9A.42 Sexual abuse complicating childbirth; Y07.9 Unspecified perpetrator of maltreatment and neglect; O13.4 Gestational [pregnancy-induced] hypertension without significant proteinuria, complicating childbirth; O70.0 First degree perineal laceration during delivery; F90.9 Attention-deficit hyperactivity disorder, unspecified type; O69.81X0 Labor and delivery complicated by cord around neck, without compression, not applicable or unspecified; Z88.0 Allergy status to penicillin; Z87.820 Personal history of traumatic brain injury; Z86.718 Personal history of other venous thrombosis and embolism; Z3A.36 36 weeks gestation of pregnancy; Z37.0 Single live birth
CPT/HCPCS: 36415; 80053; 80307; 81001; 83615; 84550; 85025; 85027; 85610; 85730; 86592; 86850; 86900; 86901; 87086; 88307; C1726; J1650; J2210; J2405; J2590; J3370; J3475; J3490; J7060; J8499